=== PATIENT | female | born 1935 | race Caucasian/White ===

== ENCOUNTER 2016-10-12 14:20 | Emergency (ER) | payer MEDICARE, BC ==
[2016-10-12 15:09] LABS: ABSOLUTE BASOPHILS # (AUTO) 0.1 10^3/uL (0.0-0.2); ABSOLUTE EOSINOPHILS # (AUTO) 0.1 10^3/uL (0.0-0.6); ABSOLUTE LYMPHOCYTES (AUTO) 1.7 10^3/uL (0.5-4.7); ABSOLUTE MONOCYTES (AUTO) 0.8 10^3/uL (0.1-1.4); BASOPHILS % (AUTO) 0.9 % (0-2); EOSINOPHILS % (AUTO) 0.6 % (0-6); HEMOGLOBIN 14.3 g/dL (12.0-15.5); HGB HCT DIFFERENCE -0.1; LYMPHOCYTES % (AUTO) 19.8 % (13-45); MEAN CORPUSCULAR HEMOGLOBIN 27.8 pg (27.0-33.4); MEAN CORPUSCULAR HGB CONC 33.3 g/dL (32.0-36.0); MEAN CORPUSCULAR VOLUME 84 fl (80-97); MONOCYTES % (AUTO) 8.9 % (3-13); RED BLOOD COUNT 5.15 10^6/uL (3.72-5.28); RED CELL DISTRIBUTION WIDTH 17.2 % (11.5-14.0); SEGMENTED NEUTROPHILS % (AUTO) 69.8 % (42-78); WHITE BLOOD COUNT 8.6 10^3/uL (4.0-10.5)
[2016-10-12 15:10] LABS: PROTHROMBIN TIME 17.4 SEC (11.4-15.4)
[2016-10-12 15:39] LABS: CREATINE KINASE MB 1.57 ng/mL (<4.55); TROPONIN I 0.016 ng/mL
[2016-10-12 15:56] LABS: ALANINE AMINOTRANSFERASE 31 U/L (9-52); ALBUMIN 4.5 g/dL (3.5-5.0); ALKALINE PHOSPHATASE 142 U/L (38-126); ANION GAP 18 (5-19); ASPARTATE AMINO TRANSFERASE 37 U/L (14-36); BILIRUBIN,TOTAL 1.1 mg/dL (0.2-1.3); BLOOD UREA NITROGEN 23 mg/dL (7-20); CALCIUM 9.6 mg/dL (8.4-10.2); CARBON DIOXIDE 30 mmol/L (22-30); CHLORIDE 94 mmol/L (98-107); CREATINE KINASE 39 U/L (30-135); CREATININE RESULT 1.07 mg/dL (0.52-1.25); GLUCOSE 81 mg/dL (75-110); POTASSIUM 3.6 mmol/L (3.6-5.0); SODIUM 141.7 mmol/L (137-145); TOTAL PROTEIN 7.1 g/dL (6.3-8.2)
--- NOTE | 2016-10-12 19:41 | ER Document Report ---
ED Cardiac - General Chief Complaint: Chest Pain > 30 Stated Complaint: CHEST PAIN Notes: This is an 80-year-old female with history of A. fib, PE on Xarelto who presents complaining of 31 minute episodes of chest pain which occurred this morning. She states each episode was about 2 minutes apart. She describes it as discomfort rather than pain. She did not fill particular short of breath with it. She was concerned and told her son who advised her to come to the ER to get checked out. She did go see a movie before coming to the ER and states she felt fine the whole time. She also states she is feeling completely normal at this time. She states she occasionally has bilateral lower extremity edema, none at this time. She did note some about 2 weeks ago and had some weeping from her legs when that happened. No recent travel or immobilization. The patient reports a clean cardiac catheterization about 2-3 years ago. TRAVEL OUTSIDE OF THE [place] IN LAST 30 DAYS: No - Related Data Allergies/Adverse Reactions: Penicillins Allergy (Verified 10/12/16 14:29) Past Medical History - General Information source: Patient Last Menstrual Period: n/a - Social History Smoking Status: Former Smoker - Quit 7 years ago Frequency of alcohol use: drinks 1-2 drinks daily Drug Abuse: None Family History: Reviewed & Not Pertinent - Past Medical History Cardiac Medical History: Reports: Hx Atrial Fibrillation, Hx DVT, Hx Hypertension, Hx Peripheral Vascular Disease, Hx Pulmonary Embolism Pulmonary Medical History: Reports: Hx Asthma, Hx COPD GI Medical History: Reports: Hx Gastroesophageal Reflux Disease - Immunizations Immunizations up to date: Yes Hx Diphtheria, Pertussis, Tetanus Vaccination: Yes Hx Pneumococcal Vaccination: 06/10/15 Review of Systems - Review of Systems Constitutional: denies: Fever EENT: denies: Throat pain Cardiovascular: denies: Dyspnea, Syncope Respiratory: denies: Cough, Hurts to breathe, Hemoptysis, Short of breath Gastrointestinal: denies: Abdominal pain Genitourinary: denies: Flank pain Neurological/Psychological: denies: Numbness, Tingling Physical Exam - Vital signs Vitals: Temp Pulse BP 97.5 F 96 134/105 H 10/12/16 14:43 10/12/16 14:43 10/12/16 14:43 - Notes Notes: GENERAL: Very well-appearing, talkative, smiling female who appears much younger than her stated age HEAD: Atraumatic, normocephalic. EYES: Pupils equal round and reactive to light, extraocular movements intact, sclera anicteric, conjunctiva are normal. ENT: nares patent, oropharynx clear without exudates. Moist mucous membranes. NECK: Normal range of motion, supple without lymphadenopathy or JVD. LUNGS: Breath sounds clear to auscultation bilaterally and equal. No wheezes rales or rhonchi. HEART: Irregularly irregular normal rate ABDOMEN: Soft, nontender, normoactive bowel sounds. No guarding, no rebound. No masses appreciated. EXTREMITIES: Normal range of motion, no pitting or edema. No clubbing or cyanosis. NEUROLOGICAL: Cranial nerves II through XII grossly intact. Normal speech, normal gait. PSYCH: Normal mood, normal affect. SKIN: Warm, Dry, normal turgor, no rashes or lesions noted. Few scattered ecchymotic areas on the lower extremities Course - Re-evaluation Re-evalutation: 10/12/16 19:39 pt feeling fine, wants to go home. CTA negative. Cardiac enzymes negative x 2. Rate controlled a fib on monitor, O2 sat 95% on room air. Son at bedside. Pt has appt with Dr. Pino next week. - Vital Signs Vital signs: Temp Pulse Resp BP Pulse Ox 98.7 F 96 18 129/89 H 76 L 10/12/16 15:33 10/12/16 14:43 10/12/16 18:13 10/12/16 18:13 10/12/16 17:00 - Laboratory Result Diagrams: 10/12/16 14:50 10/12/16 14:50 Laboratory results interpreted by me: 10/12/16 10/12/16 10/12/16 14:50 14:50 14:50 RDW 17.2 H PT 17.4 H Chloride 94 L BUN 23 H Est GFR (Non-Af Amer) 49 L AST 37 H Alkaline Phosphatase 142 H - Diagnostic Test Radiology reviewed: Image reviewed, Reports reviewed - EKG Interpretation by Me Rate: Normal - 100, appearance similar to 10/11/15 Rhythm: A.Fib Discharge - Discharge Clinical Impression: Chest pain, atypical Condition: Good Disposition: HOME, SELF-CARE Additional Instructions: return to ER if you have further chest pain episodes or are feeling ill, short of breath, have fever or any new concerns. Referrals: JOSE PINO MD [Primary Care Provider] - Follow up as needed
[2016-10-12 21:32] VITALS: BP 111/71
--- NOTE | 2016-10-13 15:56 | EKG REPORT ---
SEVERITY:- ABNORMAL ECG - ATRIAL FIBRILLATION, V-RATE 71-130 PROBABLE ANTEROSEPTAL INFARCT, OLD REPOL ABNRM SUGGESTS ISCHEMIA, ANT-LAT LEADS : Confirmed by: Hesham Ceron 13-Oct-2016 15:55:42
== END 2016-10-12 21:28 | disposition home or self-care (01) ==
LOC: ER 14:20
DX: R07.89 Other chest pain (principal); I48.91 Unspecified atrial fibrillation; I10 Essential (primary) hypertension; J44.9 Chronic obstructive pulmonary disease, unspecified; J45.909 Unspecified asthma, uncomplicated; Z86.711 Personal history of pulmonary embolism; Z79.01 Long term (current) use of anticoagulants; Z87.891 Personal history of nicotine dependence; Z86.718 Personal history of other venous thrombosis and embolism
CPT/HCPCS: 36415; 71020; 71275; 80053; 82550; 82553; 84484; 85025; 85610; 93005; 93010; 99285

== ENCOUNTER 2016-11-10 09:39 | Inpatient (IN) | payer MEDICARE, BC ==
[2016-11-10] MEDS ORDERED: IPRATROPIUM/ALBUTEROL 0.5-2.5 MG/3 ML AMPUL NEB ONE (11:18)
[2016-11-10 11:58] LABS: HEMATOCRIT 36.9 % (36.0-47.0); HEMOGLOBIN 12.1 g/dL (12.0-15.5); HGB HCT DIFFERENCE -0.6; MEAN CORPUSCULAR HEMOGLOBIN 27.6 pg (27.0-33.4); MEAN CORPUSCULAR HGB CONC 32.9 g/dL (32.0-36.0); MEAN CORPUSCULAR VOLUME 84 fl (80-97); PROTHROMBIN TIME 16.2 SEC (11.4-15.4); RED CELL DISTRIBUTION WIDTH 17.5 % (11.5-14.0)
[2016-11-10 12:06] LABS: ALANINE AMINOTRANSFERASE 19 U/L (9-52); ALBUMIN 4.4 g/dL (3.5-5.0); ALKALINE PHOSPHATASE 153 U/L (38-126); ANION GAP 15 (5-19); ASPARTATE AMINO TRANSFERASE 31 U/L (14-36); BILIRUBIN,TOTAL 1.9 mg/dL (0.2-1.3); BLOOD UREA NITROGEN 19 mg/dL (7-20); CALCIUM 9.9 mg/dL (8.4-10.2); CARBON DIOXIDE 29 mmol/L (22-30); CHLORIDE 97 mmol/L (98-107); CREATINE KINASE 92 U/L (30-135); CREATININE RESULT 0.97 mg/dL (0.52-1.25); GLUCOSE 152 mg/dL (75-110); POTASSIUM 3.6 mmol/L (3.6-5.0); SODIUM 141.1 mmol/L (137-145); TOTAL PROTEIN 6.5 g/dL (6.3-8.2)
[2016-11-10 12:18] LABS: CREATINE KINASE MB 1.71 ng/mL (<4.55); TROPONIN I 0.028 ng/mL
[2016-11-10 12:27] LABS: BASOPHILS % (MANUAL) 0 % (0-2); EOSINOPHILS % (MANUAL) 0 % (0-6); LYMPHOCYTES % (MANUAL) 7 % (13-45); TOTAL CELLS COUNTED 100
[2016-11-10 12:30] LABS: ANISOCYTOSIS 1+; POLYCHROMASIA SLIGHT; TOXIC GRANULATION SLIGHT
[2016-11-10] MEDS ORDERED: NORMAL SALINE 1000 ML 500 ML IV ONE (12:30)
[2016-11-10 13:09] LABS: VENOUS BLOOD BASE EXCESS 3.4 mmol/L; VENOUS BLOOD HCO3 27.8 mmol/L (20-32); VENOUS BLOOD PCO2 41.3 mmHg (35-63); VENOUS BLOOD PH 7.45 (7.30-7.42)
[2016-11-10] MEDS ORDERED: DILTIAZEM HCL/D5W 125 ML IV PRN ×2 (14:03→15:05)
[2016-11-10] MEDS ORDERED: DILTIAZEM HCL INJ 25 MG/5 ML VIAL IV ONE (14:03)
[2016-11-10] MEDS ORDERED: FUROSEMIDE INJ/PF 40 MG/4 ML SDV IV ONE (14:03)
--- NOTE | 2016-11-10 14:33 | ER Document Report ---
ED General - General Chief Complaint: Pain All Over Stated Complaint: FLU LIKE SYMPTOMS BREATHING CONCERNS TRAVEL OUTSIDE OF THE [place] IN LAST 30 DAYS: No - Related Data Allergies/Adverse Reactions: Penicillins Allergy (Verified 11/10/16 09:50) Past Medical History - Social History Smoking Status: Former Smoker Chew tobacco use (# tins/day): No Frequency of alcohol use: Occasional Drug Abuse: None Family History: Reviewed & Not Pertinent Patient has suicidal ideation: No Patient has homicidal ideation: No - Past Medical History Cardiac Medical History: Reports: Hx Atrial Fibrillation, Hx DVT, Hx Hypertension, Hx Peripheral Vascular Disease, Hx Pulmonary Embolism Pulmonary Medical History: Reports: Hx Asthma, Hx COPD Renal/ Medical History: Denies: Hx Peritoneal Dialysis GI Medical History: Reports: Hx Gastroesophageal Reflux Disease - Immunizations Immunizations up to date: Yes Hx Diphtheria, Pertussis, Tetanus Vaccination: Yes Hx Pneumococcal Vaccination: 06/10/15 Physical Exam - Vital signs Vitals: Temp Pulse Resp BP Pulse Ox 99.0 F 92 32 H 156/102 H 95 11/10/16 09:58 11/10/16 09:58 11/10/16 09:58 11/10/16 09:58 11/10/16 09:58 Course - Vital Signs Vital signs: Temp Pulse Resp BP Pulse Ox 99.5 F 92 18 156/102 H 96 11/10/16 13:16 11/10/16 09:58 11/10/16 11:00 11/10/16 09:58 11/10/16 13:17 - Laboratory Result Diagrams: 11/10/16 11:40 11/10/16 11:40 Laboratory results interpreted by me: 11/10/16 11/10/16 11/10/16 11:40 11:40 11:40 RDW 17.5 H Seg Neuts % (Manual) 92 H Lymphocytes % (Manual) 7 L Monocytes % (Manual) 1 L Abs Neuts (Manual) 9.2 H PT 16.2 H VBG pH Chloride 97 L Est GFR (Non-Af Amer) 55 L Glucose 152 H Total Bilirubin 1.9 H Alkaline Phosphatase 153 H 11/10/16 12:43 RDW Seg Neuts % (Manual) Lymphocytes % (Manual) Monocytes % (Manual) Abs Neuts (Manual) PT VBG pH 7.45 H Chloride Est GFR (Non-Af Amer) Glucose Total Bilirubin Alkaline Phosphatase Discharge - Discharge Clinical Impression: Anticoagulated, Atrial fibrillation with RVR COPD (chronic obstructive pulmonary disease) Qualifiers: COPD type: unspecified COPD Qualified Code(s): J44.9 - Chronic obstructive pulmonary disease, unspecified Hypervolemia Qualifiers: Hypervolemia type: unspecified Qualified Code(s): E87.70 - Fluid overload, unspecified Condition: Fair Disposition: ADMITTED INPATIENT Admitting Provider: Hospitalist - [facility] Admitted: [facility]
--- NOTE | 2016-11-10 15:32 | ER Document Report ---
Addendum entered and electronically signed by KANG CABRAL NP 11/10/16 15:44: Discharge Summary (Adult) Resuscitation Status: Full Code - Discharge Diagnosis (1) Atrial fibrillation with RVR Is this a current diagnosis for this admission?: Yes (2) Acute on chronic diastolic (congestive) heart failure Is this a current diagnosis for this admission?: Yes (3) Acute exacerbation of chronic obstructive pulmonary disease (COPD) Is this a current diagnosis for this admission?: Yes (4) Anticoagulated Is this a current diagnosis for this admission?: Yes (5) Essential hypertension Is this a current diagnosis for this admission?: Yes Discharge Medication: Albuterol Sulfate [Ventolin Hfa] puff IN PRN 10/11/15 Azelastine/Fluticasone [Dymista Nasal [place]] 2 puff NASL QHS 10/11/15 Budesonide/Formoterol Fumarate [Symbicort HFA 80-4.5 mcg Inhaler 6.9 gm] puff IN 10/11/15 Calcium Carbonate/Vitamin D3 [Calcium 600-Vit D3 200 Tablet] 1 tab PO QHS Fluticasone Propionate [Flovent Diskus 50 mcg] puff IN 10/11/15 Mv-Mn/FA/Vit K/Lycop/Lut/Zeaxa [Ocuvite Eye + Multi Tablet] 1 tab PO 10/11/15 Apixaban [Eliquis 5 mg Tablet] 5 mg PO BID #60 tablet 10/15/15 Benzonatate [Tessalon Perles 100 mg Capsule] 100 mg PO Q6 #30 capsule 10/15/15 Digoxin [Lanoxin 0.125 mg Tablet] 0.125 mg PO DAILY #30 tablet 10/15/15 Doxycycline Hyclate [Vibramycin 100 mg Tablet] 100 mg PO Q12 #10 tablet Guaifenesin [Mucinex Sr 600 mg Tablet.sa] 1,200 mg PO Q12 #60 tablet.sa Metoprolol Tartrate [Lopressor 50 mg Tablet] 50 mg PO Q12 #60 tablet 10/15/15 Prednisone 20 mg PO ASDIR #21 tablet 10/15/15 Clindamycin HCl [Cleocin Hcl] 300 mg PO QID #28 capsule 08/03/16 Original Note: ED General - General Chief Complaint: Pain All Over Stated Complaint: FLU LIKE SYMPTOMS BREATHING CONCERNS TRAVEL OUTSIDE OF THE [place] IN LAST 30 DAYS: No - HPI Patient complains to provider of: shortness of breath myalgias Notes: Patient coming in for evaluation of a source of breath nausea vomiting after being seen in her local primary care physician's office. Patient states father became acutely short of breath with some nausea and vomiting. Patient states symptoms ongoing for approximately past 24-48 hours. Patient states recent adjustment to her blood pressure medications did not take her metoprolol night prior to arrival. Denies fever chills chest pain abdominal pain. Upon evaluation the patient is tachypneic no signs of impending her story stress - Related Data Allergies/Adverse Reactions: Penicillins Allergy (Verified 11/10/16 09:50) Past Medical History - Social History Smoking Status: Former Smoker Chew tobacco use (# tins/day): No Frequency of alcohol use: Occasional Drug Abuse: None Family History: Reviewed & Not Pertinent Patient has suicidal ideation: No Patient has homicidal ideation: No - Past Medical History Cardiac Medical History: Reports: Hx Atrial Fibrillation, Hx DVT, Hx Hypertension, Hx Peripheral Vascular Disease, Hx Pulmonary Embolism Pulmonary Medical History: Reports: Hx Asthma, Hx COPD Renal/ Medical History: Denies: Hx Peritoneal Dialysis GI Medical History: Reports: Hx Gastroesophageal Reflux Disease - Immunizations Immunizations up to date: Yes Hx Diphtheria, Pertussis, Tetanus Vaccination: Yes Hx Pneumococcal Vaccination: 06/10/15 Review of Systems - Review of Systems Constitutional: No symptoms reported EENT: No symptoms reported Cardiovascular: No symptoms reported Respiratory: Cough, Short of breath, Wheezing Gastrointestinal: No symptoms reported Genitourinary: No symptoms reported Female Genitourinary: No symptoms reported Musculoskeletal: No symptoms reported Skin: No symptoms reported Hematologic/Lymphatic: No symptoms reported Neurological/Psychological: No symptoms reported -: Yes All other systems reviewed and negative Physical Exam - Vital signs Vitals: Temp Pulse Resp BP Pulse Ox 99.0 F 92 32 H 156/102 H 95 11/10/16 09:58 11/10/16 09:58 11/10/16 09:58 11/10/16 09:58 11/10/16 09:58 Interpretation: Tachypneic - General General appearance: Appears well, Alert - HEENT Head: Normocephalic, Atraumatic Eyes: Normal Pupils: PERRL - Respiratory Respiratory status: No respiratory distress Chest status: Nontender Breath sounds: Rhonchi, Wheezing Chest palpation: Normal - Cardiovascular Rhythm: Irregularly irregular, Tachycardia Heart sounds: Normal auscultation Murmur: No - Abdominal Inspection: Normal Distension: No distension Bowel sounds: Normal Tenderness: Nontender Organomegaly: No organomegaly - Back Back: Normal, Nontender - Extremities General upper extremity: Normal inspection, Nontender, Normal color, Normal ROM , Normal temperature General lower extremity: Normal inspection, Nontender, Normal color, Normal ROM , Normal temperature, Normal weight bearing. No: Trey's sign - Neurological Neuro grossly intact: Yes Cognition: Normal Orientation: AAOx4 Gust[place] Coma Scale Eye Opening: Spontaneous [place] Coma Scale Verbal: Oriented [place] Coma Scale Motor: Obeys Commands [place] Coma Scale Total: 15 Speech: Normal Motor strength normal: LUE, RUE, LLE, RLE Sensory: Normal - Psychological Associated symptoms: Normal affect, Normal mood - Skin Skin Temperature: Warm Skin Moisture: Dry Skin Color: Normal Course - Re-evaluation Re-evalutation: 11/10/16 15:33 Patient with A. fib RVR chest x-ray showed fluid overload. Patient was started on Cardizem drip given Lasix. Patient had no improvement after nebulizer treatment of that she has a history of COPD and wheezing. Patient at this time shows no signs of sepsis will refer patient to hospitalist for further management. - Vital Signs Vital signs: Temp Pulse Resp BP Pulse Ox 99.5 F 92 18 156/102 H 96 11/10/16 13:16 11/10/16 09:58 11/10/16 11:00 11/10/16 09:58 11/10/16 13:17 - Laboratory Result Diagrams: 11/10/16 11:40 11/10/16 11:40 Laboratory results interpreted by me: 11/10/16 11/10/16 11/10/16 11:40 11:40 11:40 RDW 17.5 H Seg Neuts % (Manual) 92 H Lymphocytes % (Manual) 7 L Monocytes % (Manual) 1 L Abs Neuts (Manual) 9.2 H PT 16.2 H VBG pH Chloride 97 L Est GFR (Non-Af Amer) 55 L Glucose 152 H Total Bilirubin 1.9 H Alkaline Phosphatase 153 H 11/10/16 12:43 RDW Seg Neuts % (Manual) Lymphocytes % (Manual) Monocytes % (Manual) Abs Neuts (Manual) PT VBG pH 7.45 H Chloride Est GFR (Non-Af Amer) Glucose Total Bilirubin Alkaline Phosphatase Critical Care Note - Critical Care Note Total time excluding time spent on procedures (mins): 35 Comments: Multiple reevaluation patient with A. fib with RVR Discharge - Discharge Clinical Impression: Anticoagulated, Atrial fibrillation with RVR COPD (chronic obstructive pulmonary disease) Qualifiers: COPD type: unspecified COPD Qualified Code(s): J44.9 - Chronic obstructive pulmonary disease, unspecified Fluid overload Qualifiers: Hypervolemia type: unspecified Qualified Code(s): E87.70 - Fluid overload, unspecified Condition: Fair Disposition: ADMITTED INPATIENT Referrals: JOSE PINO MD [Primary Care Provider] - Follow up as needed
--- NOTE | 2016-11-10 15:45 | PDOC H&P ---
History of Present Illness Admission Date/PCP: JOSE PINO Patient complains of: Cough, shortness of breath, and body aches History of Present Illness: ELEANOR PEGUERO is a 80 year old female, with a history of COPD, not on home oxygen, chronic atrial fibrillation, DVT, pulmonary embolism, hypertension, and chronic diastolic heart failure. She presents to the [facility] emergency room this afternoon complaining of progressive shortness of breath, productive cough, and body aches. She was noted to be in a rapid atrial fibrillation. Chest x-ray was obtained which showed no infiltrates or effusions the fluid volume overload. She was started on IV Cardizem and given 1 dose of IV Lasix by the ER physician. She states her symptoms began yesterday morning and have worsened until her presentation. She denies any fevers, she has had chills, as well as a productive cough of thick white sputum and generalized body aches. She states she did receive a flu shot. She has had no ill contacts with other family members. She denies any chest pain, palpitations or dizziness. She is chronically anticoagulated on Eliquis therapy. Past Medical History Cardiac Medical History: Reports: Atrial Fibrillation, DVT, Hypertension, Peripheral Vascular Disease, Pulmonary Embolism Pulmonary Medical History: Reports: Asthma, Chronic Obstructive Pulmonary Disease (COPD) EENT Medical History: Reports: None Neurological Medical History: Reports: None Renal/ Medical History: Reports: None Malignancy Medical History: Reports: None GI Medical History: Reports: Gastroesophageal Reflux Disease Musculoskeltal Medical History: Reports: None Skin Medical History: Reports: None Psychiatric Medical History: Reports: None Traumatic Medical History: Reports: None Hematology: Reports: None Infectious Medical History: Reports: None Past Surgical History Past Surgical History: Reports: None Social History Information Source: Patient Lives with: Alone Smoking Status: Former Smoker Last Time Smoked: 15 years ago Frequency of Alcohol Use: Social Hx Recreational Drug Use: No Drugs: None Hx Prescription Drug Abuse: No - Advance Directive Resuscitation Status: Full Code Surrogate healthcare decision maker:: son is her MPOA should she become incapacitated Family History Family History: COPD, Hypertension Parental Family History Reviewed: Yes Children Family History Reviewed: Yes Sibling(s) Family History Reviewed.: Yes Medication/Allergy Home Medications: Albuterol Sulfate [Ventolin Hfa] puff IN PRN 10/11/15 Azelastine/Fluticasone [Dymista Nasal [place]] 2 puff NASL QHS 10/11/15 Budesonide/Formoterol Fumarate [Symbicort HFA 80-4.5 mcg Inhaler 6.9 gm] puff IN 10/11/15 Calcium Carbonate/Vitamin D3 [Calcium 600-Vit D3 200 Tablet] 1 tab PO QHS Fluticasone Propionate [Flovent Diskus 50 mcg] puff IN 10/11/15 Mv-Mn/FA/Vit K/Lycop/Lut/Zeaxa [Ocuvite Eye + Multi Tablet] 1 tab PO 10/11/15 Apixaban [Eliquis 5 mg Tablet] 5 mg PO BID #60 tablet 10/15/15 Benzonatate [Tessalon Perles 100 mg Capsule] 100 mg PO Q6 #30 capsule 10/15/15 Digoxin [Lanoxin 0.125 mg Tablet] 0.125 mg PO DAILY #30 tablet 10/15/15 Doxycycline Hyclate [Vibramycin 100 mg Tablet] 100 mg PO Q12 #10 tablet Guaifenesin [Mucinex Sr 600 mg Tablet.sa] 1,200 mg PO Q12 #60 tablet.sa Metoprolol Tartrate [Lopressor 50 mg Tablet] 50 mg PO Q12 #60 tablet 10/15/15 Prednisone 20 mg PO ASDIR #21 tablet 10/15/15 Clindamycin HCl [Cleocin Hcl] 300 mg PO QID #28 capsule 08/03/16 Allergies/Adverse Reactions: Penicillins Allergy (Verified 11/10/16 09:50) Review of Systems Constitutional: PRESENT: anorexia, chills, fatigue, weakness Eyes: ABSENT: visual disturbances Ears: ABSENT: hearing changes Nose, Mouth, and Throat: PRESENT: headache(s), sore throat Cardiovascular: PRESENT: dyspnea on exertion, palpitations Respiratory: PRESENT: cough, dyspnea, sputum Gastrointestinal: PRESENT: heartburn Genitourinary: ABSENT: dysuria, hematuria Musculoskeletal: ABSENT: joint swelling Neurological: ABSENT: abnormal gait, abnormal speech, confusion, dizziness, focal weakness, syncope Psychiatric: ABSENT: anxiety, depression, homidical ideation, suicidal ideation Hematologic/Lymphatic: ABSENT: easy bleeding, easy bruising Physical Exam Vital Signs: Temp Pulse Resp BP Pulse Ox 99.5 F 92 18 156/102 H 96 11/10/16 13:16 11/10/16 09:58 11/10/16 11:00 11/10/16 09:58 11/10/16 13:17 Intake & Output 11/09/16 11/10/16 11/11/16 06:59 06:59 06:59 Weight 49 kg General appearance: PRESENT: no acute distress, thin, well-developed Head exam: PRESENT: atraumatic, normocephalic Eye exam: PRESENT: conjunctiva pink, EOMI, PERRLA. ABSENT: scleral icterus Ear exam: PRESENT: normal external ear exam Mouth exam: PRESENT: moist, tongue midline Neck exam: ABSENT: carotid bruit, JVD, lymphadenopathy, thyromegaly Respiratory exam: PRESENT: crackles - expiratory wheezes bilaterally, bibasilar crackles, symmetrical, wheezes Cardiovascular exam: PRESENT: irregular rhythm, +S1, +S2, systolic murmur - mitral area Pulses: PRESENT: normal dorsalis pedis pul Vascular exam: PRESENT: normal capillary refill GI/Abdominal exam: PRESENT: normal bowel sounds, soft. ABSENT: distended, guarding, mass, organolmegaly, rebound, tenderness Rectal exam: PRESENT: deferred Extremities exam: PRESENT: full ROM. ABSENT: calf tenderness, clubbing, pedal edema Neurological exam: PRESENT: alert, awake, oriented to person, oriented to place , oriented to time, oriented to situation, CN II-XII grossly intact. ABSENT: motor sensory deficit Psychiatric exam: PRESENT: appropriate affect, normal mood. ABSENT: homicidal ideation, suicidal ideation Skin exam: PRESENT: dry, intact, warm. ABSENT: cyanosis, rash Results Laboratory Results: 11/10/16 11:40 11/10/16 11:40 11/10/16 11/10/16 11/10/16 11:40 11:40 12:43 WBC 10.0 RBC 4.40 Hgb 12.1 Hct 36.9 MCV 84 MCH 27.6 MCHC 32.9 RDW 17.5 H Plt Count 176 Seg Neutrophils % Not Reportable Lymphocytes % Not Reportable Monocytes % Not Reportable Eosinophils % Not Reportable Basophils % Not Reportable Absolute Neutrophils Not Reportable Absolute Lymphocytes Not Reportable Absolute Monocytes Not Reportable Absolute Eosinophils Not Reportable Absolute Basophils Not Reportable VBG pH 7.45 H VBG pCO2 41.3 VBG HCO3 27.8 VBG Base Excess 3.4 Sodium 141.1 Potassium 3.6 Chloride 97 L Carbon Dioxide 29 Anion Gap 15 BUN 19 Creatinine 0.97 Est GFR ( Amer) > 60 Est GFR (Non-Af Amer) 55 L Glucose 152 H Calcium 9.9 Total Bilirubin 1.9 H AST 31 ALT 19 Alkaline Phosphatase 153 H Total Protein 6.5 Albumin 4.4 11/10/16 11/10/16 11:40 11:40 Creatine Kinase 92 CK-MB (CK-2) 1.71 Troponin I 0.028 Impressions: Chest X-Ray 11/10/16 11:17 IMPRESSION: Fluid overload or congestive failure superimposed on obstructive lung disease Assessment & Plan - Diagnosis (1) Atrial fibrillation with RVR Is this a current diagnosis for this admission?: YesPlan: Patient will be placed on diltiazem drip for rate control. She is on Eliquis therapy and metoprolol. She has a history of atrial fibrillation. She did not take metoprolol since yesterday morning. (2) Acute on chronic diastolic (congestive) heart failure Is this a current diagnosis for this admission?: YesPlan: Chest xray shows fluid volume overload. Last echo 10/2015 shows preserved EF with diastolic heart failure grade I/IV and moderate tricuspid regurgitation and mild to moderate mitral regurgitation. Will diurese, continue metoprolol and digoxin. (3) Acute exacerbation of chronic obstructive pulmonary disease (COPD) Is this a current diagnosis for this admission?: YesPlan: Secondary to upper respiratory infection. Patient is afebrile at the present time. Will start IV steroids, nebulizer treatments, and IV levaquin (4) Anticoagulated Is this a current diagnosis for this admission?: YesPlan: Patient on Eliquis therapy (5) Essential hypertension Is this a current diagnosis for this admission?: YesPlan: Continue current medications - Time Time Spent: 50 to 70 Minutes Critical Time spent with patient: 25-34 minutes Medications reviewed and adjusted accordingly: Yes Anticipated discharge: Home - Inpatient Certification Based on my medical assessment, after consideration of the patient's comorbidities, presenting symptoms, or acuity I expect that the services needed warrant INPATIENT care.: Yes I certify that my determination is in accordance with my understanding of Medicare's requirements for reasonable and necessary INPATIENT services [42 CFR 412.3e].: Yes Medical Necessity: Need Close Monitoring Due to Risk of Patient Decompensation, Need For Continuous Telemetry Monitoring, Risk of Complication if Not Cared For in Hospital
[2016-11-10] MEDS ORDERED: METOPROLOL TARTRATE 50 MG TABLET ONE (16:51)
[2016-11-10] MEDS ORDERED: METOPROLOL SUCCINATE 50 MG TAB.SR.24H PO ONE (16:52)
[2016-11-10] MEDS ORDERED: GABAPENTIN 300 MG CAPSULE PO PRN (16:52)
[2016-11-10] MEDS: BENZONATATE 100 MG CAPSULE PO SCH ×2 (18:00→23:07)
[2016-11-10] MEDS ORDERED: APIXABAN 5 MG TABLET PO SCH ×2 (18:00→22:00)
[2016-11-10] MEDS: BUDESONIDE/FORMOTEROL 80-4.5 MCG 60 PUFF/6.9 GM MDI IH SCH (18:03)
[2016-11-10] MEDS: IPRATROPIUM/ALBUTEROL 0.5-2.5 MG/3 ML AMPUL NEB PRN ×2 (18:21→20:36)
[2016-11-10] MEDS: HYDROXYZINE PAMOATE 25 MG CAPSULE PO SCH (21:31)
[2016-11-10] MEDS: FAMOTIDINE 20 MG TABLET PO SCH (21:31)
[2016-11-10] MEDS: GUAIFENESIN 600 MG TABLET.SA PO SCH (21:32)
[2016-11-10] MEDS: METHYLPREDNISOLONE INJ 125 MG/2 ML SDV IV SCH (21:32)
[2016-11-10] MEDS ORDERED: METOPROLOL TARTRATE 50 MG TABLET PO SCH (22:00)
[2016-11-10] MEDS ORDERED: (PENDING PHARMACY ID) (Hydroxyzine Hcl [Atarax 25 Mg Tablet] 25 MG) PO SCH (22:00)
[2016-11-10] MEDS ORDERED: BUDESONIDE/FORMOTEROL 160-4.5 MCG 60 PUFF/6 GM MDI IH SCH (22:00)
[2016-11-10] MEDS: METOPROLOL TARTRATE PF/INJ 5 MG/5 ML SDV IV PRN (22:09)
[2016-11-11] MEDS: BENZONATATE 100 MG CAPSULE PO SCH ×4 (05:12→23:01)
[2016-11-11] MEDS: METHYLPREDNISOLONE INJ 125 MG/2 ML SDV IV SCH ×3 (05:13→21:18)
[2016-11-11 05:31] LABS: HEMATOCRIT 35.2 % (36.0-47.0); HEMOGLOBIN 11.8 g/dL (12.0-15.5); HGB HCT DIFFERENCE 0.2; MEAN CORPUSCULAR HEMOGLOBIN 28.1 pg (27.0-33.4); MEAN CORPUSCULAR HGB CONC 33.6 g/dL (32.0-36.0); MEAN CORPUSCULAR VOLUME 84 fl (80-97); RED BLOOD COUNT 4.21 10^6/uL (3.72-5.28); RED CELL DISTRIBUTION WIDTH 17.5 % (11.5-14.0); WHITE BLOOD COUNT 9.2 10^3/uL (4.0-10.5)
[2016-11-11 05:45] LABS: CHOLESTEROL 125.42 mg/dL (0-200); CREATINE KINASE 151 U/L (30-135); DIGOXIN 0.51 ng/mL (0.8-2.0); Direct HDL 46 mg/dL (>40); MAGNESIUM 1.3 mg/dL (1.6-2.3); TRIGLYCERIDES 50 mg/dL (<150)
[2016-11-11 05:53] LABS: DIRECT LDL 66 mg/dL (<100)
[2016-11-11 05:59] LABS: FREE T3 3.19 pg/mL (2.77-5.27)
[2016-11-11 06:13] LABS: THYROID STIMULATING HORMONE 1.06 uIU/mL (0.47-4.68)
[2016-11-11 06:19] LABS: BAND NEUTROPHILS % (MANUAL) 2 % (3-5); BASOPHILS % (MANUAL) 0 % (0-2); EOSINOPHILS % (MANUAL) 0 % (0-6); LYMPHOCYTES % (MANUAL) 6 % (13-45); TOTAL CELLS COUNTED 100
[2016-11-11 06:20] LABS: ANISOCYTOSIS 1+; OVALOCYTES SLIGHT; POIKILOCYTOSIS SLIGHT; TOXIC GRANULATION SLIGHT
[2016-11-11] MEDS: METOPROLOL TARTRATE 100 MG TABLET PO SCH (08:19)
[2016-11-11] MEDS: MAGNESIUM SULFATE/D5W 100 ML IV SCH ×2 (09:47→12:07)
[2016-11-11] MEDS: FAMOTIDINE 20 MG TABLET PO SCH ×2 (09:53→21:18)
[2016-11-11] MEDS: GUAIFENESIN 600 MG TABLET.SA PO SCH ×2 (09:53→21:18)
[2016-11-11] MEDS: DOCUSATE SODIUM 100 MG CAPSULE PO SCH (09:54)
[2016-11-11] MEDS: BUDESONIDE/FORMOTEROL 80-4.5 MCG 60 PUFF/6.9 GM MDI IH SCH ×2 (09:55→17:20)
[2016-11-11] MEDS: LEVOFLOXACIN 500 MG/D5W RTU 100 ML IV SCH (09:55)
[2016-11-11] MEDS: FLUTICASONE NASAL SPRAY 50 MCG/SPRY 120 SPRAY/16 GM NASL SCH (09:56)
[2016-11-11] MEDS: IPRATROPIUM/ALBUTEROL 0.5-2.5 MG/3 ML AMPUL NEB PRN ×2 (10:57→23:21)
--- NOTE | 2016-11-11 11:28 | EKG REPORT ---
SEVERITY:- ABNORMAL ECG - ATRIAL FIBRILLATION, V-RATE 86-167 PROBABLE ANTEROSEPTAL INFARCT, OLD REPOLARIZATION ABNORMALITY, PROB RATE RELATED : Confirmed by: Hesham Ceron 11-Nov-2016 11:26:41
[2016-11-11] MEDS ORDERED: DILTIAZEM HCL 60 MG TABLET PO SCH (12:00)
--- NOTE | 2016-11-11 14:00 | PDOC PROGRESS REPORT ---
Subjective Progress Note for:: 11/11/16 Subjective:: Patient seen on morning rounds. She is resting in bed. Her son is at bedside. She continues to have a cough which is mostly nonproductive and dyspnea with exertion. She denies any chest pain or dyspnea at rest. She denies any nausea, vomiting, or abdominal pain. She denies any back pain. She states her body aches have improved. Her atrial fibrillation is improved with betablockers. Physical Exam Vital Signs: Temp Pulse Resp BP Pulse Ox 97.5 F 80 16 93/75 L 96 11/11/16 11:16 11/11/16 11:16 11/11/16 11:16 11/11/16 12:03 11/11/16 11:16 Intake & Output 11/10/16 11/11/16 11/12/16 06:59 06:59 06:59 Intake Total 739 118 Output Total 750 200 - Weight 50.3 kg General appearance: PRESENT: no acute distress, thin, well-developed, well- nourished Head exam: PRESENT: atraumatic, normocephalic Eye exam: PRESENT: conjunctival injection Ear exam: PRESENT: normal external ear exam Mouth exam: PRESENT: moist, tongue midline Neck exam: ABSENT: carotid bruit, JVD, lymphadenopathy, thyromegaly Respiratory exam: PRESENT: decreased breath sounds, rhonchi, symmetrical, unlabored Cardiovascular exam: PRESENT: irregular rhythm, +S1, +S2 Pulses: PRESENT: normal dorsalis pedis pul Vascular exam: PRESENT: normal capillary refill GI/Abdominal exam: PRESENT: normal bowel sounds, soft. ABSENT: distended, guarding, mass, organolmegaly, rebound, tenderness Rectal exam: PRESENT: deferred Extremities exam: PRESENT: full ROM. ABSENT: calf tenderness, clubbing, pedal edema Neurological exam: PRESENT: alert, awake, oriented to person, oriented to place , oriented to time, oriented to situation, CN II-XII grossly intact. ABSENT: motor sensory deficit Psychiatric exam: PRESENT: appropriate affect, normal mood. ABSENT: homicidal ideation, suicidal ideation Skin exam: PRESENT: dry, intact, warm. ABSENT: cyanosis, rash Results Laboratory Results: 11/11/16 05:09 11/11/16 11/11/16 11/11/16 05:09 05:09 05:09 WBC 9.2 RBC 4.21 Hgb 11.8 L Hct 35.2 L MCV 84 MCH 28.1 MCHC 33.6 RDW 17.5 H Plt Count 164 Seg Neutrophils % Not Reportable Lymphocytes % Not Reportable Monocytes % Not Reportable Eosinophils % Not Reportable Basophils % Not Reportable Absolute Neutrophils Not Reportable Absolute Lymphocytes Not Reportable Absolute Monocytes Not Reportable Absolute Eosinophils Not Reportable Absolute Basophils Not Reportable Magnesium 1.3 L Triglycerides 50 Cholesterol 125.42 LDL Cholesterol Direct 66 VLDL Cholesterol 10.0 HDL Cholesterol 46 TSH 1.06 Free T4 1.77 Free T3 pg/mL 3.19 11/10/16 11/10/16 11/10/16 16:38 16:38 22:49 Creatine Kinase 133 149 H Troponin I 0.055 11/11/16 11/11/16 05:09 08:03 Creatine Kinase 151 H Troponin I 0.035 Impressions: Chest X-Ray 11/10/16 11:17 IMPRESSION: Fluid overload or congestive failure superimposed on obstructive lung disease Assessment & Plan - Diagnosis (1) Atrial fibrillation with RVR Is this a current diagnosis for this admission?: YesPlan: Patient is on a cardiazem drip for rate control. She is on Eliquis therapy and metoprolol. She has a history of atrial fibrillation. Her heart rate is much improved since starting her higher dose metoprolol. She did not take metoprolol for 11/2 days prior to her admission. (2) Acute on chronic diastolic (congestive) heart failure Is this a current diagnosis for this admission?: YesPlan: Chest xray shows fluid volume overload. Last echo 10/2015 shows preserved EF with diastolic heart failure grade I/IV and moderate tricuspid regurgitation and mild to moderate mitral regurgitation. Will diurese, continue metoprolol and digoxin. (3) Acute exacerbation of chronic obstructive pulmonary disease (COPD) Is this a current diagnosis for this admission?: YesPlan: Secondary to upper respiratory infection. Patient is afebrile at the present time. Will start IV steroids, nebulizer treatments, and IV levaquin (4) Anticoagulated Is this a current diagnosis for this admission?: YesPlan: Patient on Eliquis therapy (5) Essential hypertension Is this a current diagnosis for this admission?: YesPlan: Continue current medications - Time Time Spent with patient: 25-34 minutes Critical Time spent with patient: 15-24 minutes Medications reviewed and adjusted accordingly: Yes - Inpatient Certification Based on my medical assessment, after consideration of the patient's comorbidities, presenting symptoms, or acuity I expect that the services needed warrant INPATIENT care.: Yes I certify that my determination is in accordance with my understanding of Medicare's requirements for reasonable and necessary INPATIENT services [42 CFR 412.3e].: Yes Medical Necessity: Need Close Monitoring Due to Risk of Patient Decompensation, Need For Continuous Telemetry Monitoring, Risk of Complication if Not Cared For in Hospital
[2016-11-11] MEDS ORDERED: METOPROLOL TARTRATE 50 MG TABLET PO SCH (18:00)
[2016-11-11] MEDS: HYDROXYZINE PAMOATE 25 MG CAPSULE PO SCH (21:18)
[2016-11-11] MEDS: APIXABAN 5 MG TABLET PO SCH (21:18)
[2016-11-11] MEDS: MONTELUKAST SODIUM 10 MG TABLET PO SCH (21:21)
[2016-11-11] MEDS: METOPROLOL TARTRATE PF/INJ 5 MG/5 ML SDV IV PRN (22:34)
[2016-11-11] MEDS ORDERED: METOPROLOL TARTRATE PF/INJ 5 MG/5 ML SDV IV ONE (23:46)
[2016-11-12] MEDS ORDERED: DILTIAZEM HCL 30 MG TABLET ONE ×2 (01:04→03:50)
[2016-11-12] MEDS ORDERED: DILTIAZEM HCL 30 MG TABLET PO ONE ×3 (01:15→05:36)
[2016-11-12] MEDS: DILTIAZEM HCL 30 MG TABLET PO SCH ×4 (05:24→23:56)
[2016-11-12] MEDS: METHYLPREDNISOLONE INJ 125 MG/2 ML SDV IV SCH (05:25)
[2016-11-12] MEDS: BENZONATATE 100 MG CAPSULE PO SCH ×4 (05:25→23:57)
[2016-11-12] MEDS ORDERED: NORMAL SALINE 1000 ML 1,000 ML IV PRN (05:36)
[2016-11-12 05:59] LABS: HEMATOCRIT 39.5 % (36.0-47.0); HEMOGLOBIN 12.9 g/dL (12.0-15.5); HGB HCT DIFFERENCE -0.8; MEAN CORPUSCULAR HEMOGLOBIN 27.4 pg (27.0-33.4); MEAN CORPUSCULAR HGB CONC 32.6 g/dL (32.0-36.0); MEAN CORPUSCULAR VOLUME 84 fl (80-97); RED CELL DISTRIBUTION WIDTH 17.2 % (11.5-14.0)
[2016-11-12 06:17] LABS: ANION GAP 18 (5-19); BLOOD UREA NITROGEN 34 mg/dL (7-20); CALCIUM 10.1 mg/dL (8.4-10.2); CARBON DIOXIDE 26 mmol/L (22-30); CHLORIDE 87 mmol/L (98-107); GLUCOSE 161 mg/dL (75-110); POTASSIUM 3.8 mmol/L (3.6-5.0); SODIUM 131.2 mmol/L (137-145)
[2016-11-12 06:30] LABS: BAND NEUTROPHILS % (MANUAL) 1 % (3-5); BASOPHILS % (MANUAL) 0 % (0-2); EOSINOPHILS % (MANUAL) 0 % (0-6); LYMPHOCYTES % (MANUAL) 1 % (13-45); TOTAL CELLS COUNTED 100
[2016-11-12 06:31] LABS: ANISOCYTOSIS 1+; OVALOCYTES SLIGHT; POLYCHROMASIA SLIGHT
[2016-11-12] MEDS: MAGNESIUM SULFATE/D5W 1 GM/100 ML RTUPB IV SCH ×4 (06:42→10:56)
[2016-11-12] MEDS: METOPROLOL TARTRATE 100 MG TABLET PO SCH (07:52)
[2016-11-12] MEDS ORDERED: FUROSEMIDE INJ/PF 20 MG/2 ML SDV IV ONE (08:36)
[2016-11-12] MEDS ORDERED: FUROSEMIDE INJ/PF 40 MG/4 ML SDV IV ONE (09:00)
[2016-11-12] MEDS: LEVOFLOXACIN 500 MG/D5W RTU 100 ML IV SCH (09:51)
[2016-11-12] MEDS ORDERED: METHYLPREDNISOLONE INJ 125 MG/2 ML SDV IV SCH (10:00)
[2016-11-12] MEDS: FAMOTIDINE 20 MG TABLET PO SCH ×2 (10:02→22:24)
[2016-11-12] MEDS: APIXABAN 5 MG TABLET PO SCH ×2 (10:04→22:24)
[2016-11-12] MEDS: DOCUSATE SODIUM 100 MG CAPSULE PO SCH (10:04)
[2016-11-12] MEDS: GUAIFENESIN 600 MG TABLET.SA PO SCH ×2 (10:04→22:24)
[2016-11-12] MEDS: BUDESONIDE/FORMOTEROL 80-4.5 MCG 60 PUFF/6.9 GM MDI IH SCH ×2 (10:05→17:11)
[2016-11-12] MEDS: FLUTICASONE NASAL SPRAY 50 MCG/SPRY 120 SPRAY/16 GM NASL SCH ×2 (10:05→10:28)
[2016-11-12] MEDS: LEVALBUTEROL HCL NEB 1.25 MG/3 ML AMPUL NEB SCH ×2 (13:59→19:53)
[2016-11-12] MEDS: METOPROLOL TARTRATE 50 MG TABLET PO SCH (17:10)
[2016-11-12] MEDS: HYDROXYZINE PAMOATE 25 MG CAPSULE PO SCH (22:24)
[2016-11-12] MEDS: MONTELUKAST SODIUM 10 MG TABLET PO SCH (22:25)
[2016-11-12] MEDS ORDERED: METHYLPREDNISOLONE INJ 125 MG/2 ML SDV IV ONE (22:30)
[2016-11-12 22:58] LABS: HEMOGLOBIN 13.9 g/dL (12.0-15.5); HGB HCT DIFFERENCE -1.3; MEAN CORPUSCULAR HEMOGLOBIN 27.2 pg (27.0-33.4); MEAN CORPUSCULAR HGB CONC 32.3 g/dL (32.0-36.0); MEAN CORPUSCULAR VOLUME 84 fl (80-97); WHITE BLOOD COUNT 17.4 10^3/uL (4.0-10.5)
[2016-11-12 23:15] LABS: BLOOD UREA NITROGEN 41 mg/dL (7-20); CALCIUM 10.1 mg/dL (8.4-10.2); CHLORIDE 85 mmol/L (98-107); CREATININE RESULT 1.32 mg/dL (0.52-1.25); GLUCOSE 130 mg/dL (75-110)
[2016-11-12 23:16] LABS: BAND NEUTROPHILS % (MANUAL) 1 % (3-5); BASOPHILS % (MANUAL) 0 % (0-2); EOSINOPHILS % (MANUAL) 0 % (0-6); LYMPHOCYTES % (MANUAL) 3 % (13-45); TOTAL CELLS COUNTED 100
[2016-11-12 23:21] LABS: ANISOCYTOSIS 1+; PLATELET CLUMPS PRESENT; TEAR DROP CELLS 1+; TOXIC VACUOLATION PRESENT
[2016-11-12 23:26] LABS: CARBON DIOXIDE 21 mmol/L (22-30); SODIUM 128.9 mmol/L (137-145)
[2016-11-12 23:28] LABS: ANION GAP 23 (5-19); POTASSIUM 3.4 mmol/L (3.6-5.0)
[2016-11-12 23:31] LABS: ARTERIAL BLOOD BASE EXCESS -2.3 mmol/L; ARTERIAL BLOOD O2 SATURATION 95.2 % (94-98)
[2016-11-12] MEDS: IPRATROPIUM/ALBUTEROL 0.5-2.5 MG/3 ML AMPUL NEB PRN (23:35)
[2016-11-13 00:03] LABS: APPEARANCE,URINE SLIGHTLY-CLOUDY; BILIRUBIN,URINE NEGATIVE (NEGATIVE); GLUCOSE, URINE NEGATIVE (NEGATIVE); KETONES,URINE NEGATIVE (NEGATIVE); LEUKOCYTE ESTERASE,URINE NEGATIVE (NEGATIVE); NITRITE,URINE NEGATIVE (NEGATIVE); PROTEIN,URINE 30 mg/dL (NEGATIVE); URINE SPECIFIC GRAVITY 1.013; UROBILINOGEN,URINE NEGATIVE mg/dL (<2.0)
[2016-11-13] MEDS ORDERED: NORMAL SALINE 1000 ML 1,000 ML IV ONE (00:10)
[2016-11-13] MEDS ORDERED: VANCOMYCIN HCL 1,000 MG in DEXTROSE 5%-WATER 250 ML IV ONE (00:10)
[2016-11-13] MEDS ORDERED: POTASSIUM CHLORIDE 20 MEQ/15 ML UDCUP PO ONE (00:11)
[2016-11-13] MEDS ORDERED: VANCOMYCIN HCL 1 MG in DEXTROSE 5%-WATER 250 ML IV NR (00:15)
[2016-11-13] MEDS ORDERED: NORMAL SALINE 1000 ML 1,000 ML IV SCH (00:15)
[2016-11-13] MEDS: MAGNESIUM SULFATE/D5W 1 GM/100 ML RTUPB IV SCH ×2 (00:43→03:58)
[2016-11-13] MEDS ORDERED: VANCOMYCIN HCL INJ 1000 MG VIAL ONE (01:08)
[2016-11-13] MEDS: ONDANSETRON HCL INJ/PF 4 MG/2 ML SDV IV PRN ×2 (01:28→10:41)
[2016-11-13 05:59] LABS: HEMATOCRIT 37.7 % (36.0-47.0); HGB HCT DIFFERENCE -1.7; MEAN CORPUSCULAR HEMOGLOBIN 27.1 pg (27.0-33.4); MEAN CORPUSCULAR HGB CONC 31.8 g/dL (32.0-36.0); MEAN CORPUSCULAR VOLUME 85 fl (80-97); RED BLOOD COUNT 4.42 10^6/uL (3.72-5.28); RED CELL DISTRIBUTION WIDTH 17.1 % (11.5-14.0); WHITE BLOOD COUNT 14.4 10^3/uL (4.0-10.5)
[2016-11-13 06:24] LABS: ANION GAP 13 (5-19); BLOOD UREA NITROGEN 42 mg/dL (7-20); CALCIUM 8.8 mg/dL (8.4-10.2); CARBON DIOXIDE 26 mmol/L (22-30); CHLORIDE 89 mmol/L (98-107); CREATININE RESULT 1.24 mg/dL (0.52-1.25); GLUCOSE 184 mg/dL (75-110); MAGNESIUM 3.2 mg/dL (1.6-2.3); POTASSIUM 3.9 mmol/L (3.6-5.0); SODIUM 128.2 mmol/L (137-145)
[2016-11-13 06:31] LABS: BASOPHILS % (MANUAL) 0 % (0-2); EOSINOPHILS % (MANUAL) 0 % (0-6); LYMPHOCYTES % (MANUAL) 2 % (13-45); TOTAL CELLS COUNTED 100
[2016-11-13 06:32] LABS: POLYCHROMASIA SLIGHT; TOXIC VACUOLATION PRESENT
[2016-11-13 06:33] LABS: ANISOCYTOSIS 1+; TEAR DROP CELLS 1+
[2016-11-13] MEDS: DILTIAZEM HCL 30 MG TABLET PO SCH ×4 (06:53→23:14)
[2016-11-13] MEDS: BENZONATATE 100 MG CAPSULE PO SCH ×4 (06:54→23:13)
[2016-11-13] MEDS: LEVALBUTEROL HCL NEB 1.25 MG/3 ML AMPUL NEB SCH ×3 (08:59→20:11)
--- NOTE | 2016-11-13 09:25 | EKG REPORT ---
SEVERITY:- ABNORMAL ECG - ATRIAL FIBRILLATION ANTERIOR INFARCT, AGE INDETERMINATE NONSPECIFIC T ABNORMALITIES, INFERIOR LEADS : Confirmed by: Hesham Ceron 13-Nov-2016 09:24:59
[2016-11-13] MEDS ORDERED: LEVOFLOXACIN 500 MG TABLET PO SCH (10:00)
[2016-11-13] MEDS ORDERED: PREDNISONE 20 MG TABLET PO SCH (10:00)
[2016-11-13] MEDS: DOCUSATE SODIUM 100 MG CAPSULE PO SCH (10:40)
[2016-11-13] MEDS: APIXABAN 5 MG TABLET PO SCH ×2 (10:40→22:51)
[2016-11-13] MEDS: METOPROLOL TARTRATE 100 MG TABLET PO SCH (10:40)
[2016-11-13] MEDS: GUAIFENESIN 600 MG TABLET.SA PO SCH ×2 (10:40→22:51)
[2016-11-13] MEDS: FAMOTIDINE 20 MG TABLET PO SCH ×2 (10:40→22:51)
[2016-11-13] MEDS: LEVOFLOXACIN 500 MG/D5W RTU 100 ML IV SCH (10:41)
[2016-11-13] MEDS: BUDESONIDE/FORMOTEROL 80-4.5 MCG 60 PUFF/6.9 GM MDI IH SCH ×2 (10:43→17:41)
--- NOTE | 2016-11-13 12:27 | PDOC PROGRESS REPORT ---
Subjective Progress Note for:: 11/12/16 Subjective:: Patient seen on morning rounds. She is resting in bed. Her son is at bedside. She continues to have a cough which is mostly nonproductive and dyspnea with exertion. She denies any chest pain or dyspnea at rest. She denies any nausea, vomiting, or abdominal pain. She denies any back pain. She states her body aches have improved. Her atrial fibrillation is improved with betablockers. Physical Exam Vital Signs: Temp Pulse Resp BP Pulse Ox 97.3 F 92 26 H 146/99 H 95 11/13/16 08:00 11/13/16 08:56 11/13/16 12:07 11/13/16 08:00 11/13/16 12:20 Pulse Oximeter Continuous Start: 11/13/16 12: 12 Freq: RTQ4 Status: Active Document 11/13/16 12:20 LBR (Rec: 11/13/16 12:20 [email or web address] [email or web address]) Pulse Oximetry Assessment Oxygen Saturation (92-100) 95 Oxygen Delivery Method CPAP Fraction of Inspired Oxygen (FIO2) 40 Equipment Usage Initial Set Up Continuous Pulse Oximeter 24 Hour Charge Charge Now Continuous SpO2 Machine # 11 Intake & Output 11/12/16 11/13/16 11/14/16 06:59 06:59 06:59 Intake Total 659 2054 Output Total 200 50 Balance 459 2003 Weight 52.1 kg 54.3 kg General appearance: PRESENT: no acute distress, thin, well-developed, well- nourished Head exam: PRESENT: atraumatic, normocephalic Eye exam: PRESENT: conjunctiva pink, EOMI, PERRLA. ABSENT: scleral icterus Ear exam: PRESENT: normal external ear exam Mouth exam: PRESENT: moist, tongue midline Neck exam: ABSENT: carotid bruit, JVD, lymphadenopathy, thyromegaly Respiratory exam: PRESENT: rhonchi, symmetrical, unlabored Cardiovascular exam: PRESENT: RRR. ABSENT: diastolic murmur, rubs, systolic murmur Pulses: PRESENT: normal dorsalis pedis pul Vascular exam: PRESENT: normal capillary refill GI/Abdominal exam: PRESENT: normal bowel sounds, soft. ABSENT: distended, guarding, mass, organolmegaly, rebound, tenderness Rectal exam: PRESENT: deferred Extremities exam: PRESENT: full ROM. ABSENT: calf tenderness, clubbing, pedal edema Neurological exam: PRESENT: alert, awake, oriented to person, oriented to place , oriented to time, oriented to situation, CN II-XII grossly intact. ABSENT: motor sensory deficit Psychiatric exam: PRESENT: appropriate affect, normal mood. ABSENT: homicidal ideation, suicidal ideation Skin exam: PRESENT: dry, intact, warm. ABSENT: cyanosis, rash Results Laboratory Results: 11/13/16 05:00 11/13/16 05:00 11/12/16 11/12/16 11/12/16 22:45 22:45 22:55 WBC 17.4 H RBC 5.10 Hgb 13.9 Hct 43.0 MCV 84 MCH 27.2 MCHC 32.3 RDW 17.0 H Plt Count 225 Seg Neutrophils % Not Reportable Lymphocytes % Not Reportable Monocytes % Not Reportable Eosinophils % Not Reportable Basophils % Not Reportable Absolute Neutrophils Not Reportable Absolute Lymphocytes Not Reportable Absolute Monocytes Not Reportable Absolute Eosinophils Not Reportable Absolute Basophils Not Reportable Carbonic Acid 1.31 HCO3/H2CO3 Ratio 17:1 ABG pH 7.35 ABG pCO2 43.4 ABG pO2 79.5 L ABG HCO3 23.4 ABG O2 Saturation 95.2 ABG Base Excess -2.3 FiO2 FLOW RATE 5 Sodium 128.9 L Potassium 3.4 L Chloride 85 L Carbon Dioxide 21 L Anion Gap 23 H BUN 41 H Creatinine 1.32 H Est GFR ( Amer) 47 L Est GFR (Non-Af Amer) 39 L Glucose 130 H Calcium 10.1 Magnesium Urine Color Urine Appearance Urine pH Ur Specific [place] Urine Protein Urine Glucose (UA) Urine Ketones Urine Blood Urine Nitrite Ur Leukocyte Esterase Urine WBC (Auto) Urine RBC (Auto) 11/12/16 11/13/16 11/13/16 23:15 05:00 05:00 WBC 14.4 H RBC 4.42 Hgb 12.0 Hct 37.7 MCV 85 MCH 27.1 MCHC 31.8 L RDW 17.1 H Plt Count 204 Seg Neutrophils % Not Reportable Lymphocytes % Not Reportable Monocytes % Not Reportable Eosinophils % Not Reportable Basophils % Not Reportable Absolute Neutrophils Not Reportable Absolute Lymphocytes Not Reportable Absolute Monocytes Not Reportable Absolute Eosinophils Not Reportable Absolute Basophils Not Reportable Carbonic Acid HCO3/H2CO3 Ratio ABG pH ABG pCO2 ABG pO2 ABG HCO3 ABG O2 Saturation ABG Base Excess FiO2 Sodium 128.2 L Potassium 3.9 Chloride 89 L Carbon Dioxide 26 Anion Gap 13 BUN 42 H Creatinine 1.24 Est GFR ( Amer) 50 L Est GFR (Non-Af Amer) 42 L Glucose 184 H Calcium 8.8 Magnesium 3.2 H Urine Color YELLOW Urine Appearance SLIGHTLY-CLOUDY Urine pH 5.0 Ur Specific [place] 1.013 Urine Protein 30 H Urine Glucose (UA) NEGATIVE Urine Ketones NEGATIVE Urine Blood SMALL H Urine Nitrite NEGATIVE Ur Leukocyte Esterase NEGATIVE Urine WBC (Auto) 2 Urine RBC (Auto) 1 11/12/16 08:10 Sputum Gram Stain - Final 11/12/16 08:10 Sputum Sputum Culture - Final 11/10/16 11/10/16 11/10/16 16:38 16:38 22:49 Creatine Kinase 133 149 H Troponin I 0.055 NT-Pro-B Natriuret Pep 11/11/16 11/11/16 11/12/16 05:09 08:03 05:21 Creatine Kinase 151 H Troponin I 0.035 NT-Pro-B Natriuret Pep 5140 H Impressions: Chest X-Ray 11/10/16 11:17 IMPRESSION: Fluid overload or congestive failure superimposed on obstructive lung disease Assessment & Plan - Diagnosis (1) Atrial fibrillation with RVR Is this a current diagnosis for this admission?: YesPlan: Patient is on a cardiazem drip for rate control. She is on Eliquis therapy and metoprolol. She has a history of atrial fibrillation. Her heart rate is much improved since starting her higher dose metoprolol. She did not take metoprolol for 11/2 days prior to her admission. (2) Acute on chronic diastolic (congestive) heart failure Is this a current diagnosis for this admission?: YesPlan: Chest xray shows fluid volume overload. Last echo 10/2015 shows preserved EF with diastolic heart failure grade I/IV and moderate tricuspid regurgitation and mild to moderate mitral regurgitation. Will diurese, continue metoprolol and digoxin. (3) Acute exacerbation of chronic obstructive pulmonary disease (COPD) Is this a current diagnosis for this admission?: YesPlan: Secondary to upper respiratory infection. Patient is afebrile at the present time. Will start IV steroids, nebulizer treatments, and IV levaquin (4) Anticoagulated Is this a current diagnosis for this admission?: YesPlan: Patient on Eliquis therapy (5) Essential hypertension Is this a current diagnosis for this admission?: YesPlan: Continue current medications - Time Time Spent with patient: 25-34 minutes Critical Time spent with patient: 15-24 minutes Medications reviewed and adjusted accordingly: Yes Anticipated discharge: Home
--- NOTE | 2016-11-13 12:40 | PDOC PROGRESS REPORT ---
Subjective Progress Note for:: 11/13/16 Subjective:: Patient seen on morning rounds. She is out of bed on the bedside commode. She became confused overnight. ABG was checked, which was within normal limits. She is clearer at the present time. She continues to have a cough which is mostly nonproductive and dyspnea with exertion. She denies any chest pain or dyspnea at rest. She denies any nausea, vomiting, or abdominal pain. She denies any back pain. She states her body aches have improved. Her atrial fibrillation is improved with betablockers. Physical Exam Vital Signs: Temp Pulse Resp BP Pulse Ox 97.3 F 92 26 H 146/99 H 95 11/13/16 08:00 11/13/16 08:56 11/13/16 12:07 11/13/16 08:00 11/13/16 12:20 Pulse Oximeter Continuous Start: 11/13/16 12: 12 Freq: RTQ4 Status: Active Document 11/13/16 12:20 LBR (Rec: 11/13/16 12:20 LBR [email or web address]) Pulse Oximetry Assessment Oxygen Saturation (92-100) 95 Oxygen Delivery Method CPAP Fraction of Inspired Oxygen (FIO2) 40 Equipment Usage Initial Set Up Continuous Pulse Oximeter 24 Hour Charge Charge Now Continuous SpO2 Machine # 11 Intake & Output 11/12/16 11/13/16 11/14/16 06:59 06:59 06:59 Intake Total 659 2054 Output Total 200 50 Balance 459 2003 Weight 52.1 kg 54.3 kg General appearance: PRESENT: no acute distress, thin, well-developed, well- nourished Head exam: PRESENT: atraumatic Eye exam: PRESENT: conjunctiva pink, EOMI, PERRLA. ABSENT: scleral icterus Ear exam: PRESENT: normal external ear exam Mouth exam: PRESENT: moist, tongue midline Neck exam: ABSENT: carotid bruit, JVD, lymphadenopathy, thyromegaly Respiratory exam: PRESENT: decreased breath sounds, rhonchi, symmetrical, tachypnea, wheezes Cardiovascular exam: PRESENT: RRR. ABSENT: diastolic murmur, rubs, systolic murmur Pulses: PRESENT: normal dorsalis pedis pul Vascular exam: PRESENT: normal capillary refill GI/Abdominal exam: PRESENT: normal bowel sounds, soft. ABSENT: distended, guarding, mass, organolmegaly, rebound, tenderness Rectal exam: PRESENT: deferred Extremities exam: PRESENT: full ROM. ABSENT: calf tenderness, clubbing, pedal edema Neurological exam: PRESENT: alert, awake, oriented to person, oriented to place , oriented to situation, CN II-XII grossly intact. ABSENT: motor sensory deficit Psychiatric exam: PRESENT: anxious Skin exam: PRESENT: dry, intact, warm. ABSENT: cyanosis, rash Results Laboratory Results: 11/13/16 05:00 11/13/16 05:00 11/12/16 11/12/16 11/12/16 22:45 22:45 22:55 WBC 17.4 H RBC 5.10 Hgb 13.9 Hct 43.0 MCV 84 MCH 27.2 MCHC 32.3 RDW 17.0 H Plt Count 225 Seg Neutrophils % Not Reportable Lymphocytes % Not Reportable Monocytes % Not Reportable Eosinophils % Not Reportable Basophils % Not Reportable Absolute Neutrophils Not Reportable Absolute Lymphocytes Not Reportable Absolute Monocytes Not Reportable Absolute Eosinophils Not Reportable Absolute Basophils Not Reportable Carbonic Acid 1.31 HCO3/H2CO3 Ratio 17:1 ABG pH 7.35 ABG pCO2 43.4 ABG pO2 79.5 L ABG HCO3 23.4 ABG O2 Saturation 95.2 ABG Base Excess -2.3 FiO2 FLOW RATE 5 Sodium 128.9 L Potassium 3.4 L Chloride 85 L Carbon Dioxide 21 L Anion Gap 23 H BUN 41 H Creatinine 1.32 H Est GFR ( Amer) 47 L Est GFR (Non-Af Amer) 39 L Glucose 130 H Calcium 10.1 Magnesium Urine Color Urine Appearance Urine pH Ur Specific [place] Urine Protein Urine Glucose (UA) Urine Ketones Urine Blood Urine Nitrite Ur Leukocyte Esterase Urine WBC (Auto) Urine RBC (Auto) 11/12/16 11/13/16 11/13/16 23:15 05:00 05:00 WBC 14.4 H RBC 4.42 Hgb 12.0 Hct 37.7 MCV 85 MCH 27.1 MCHC 31.8 L RDW 17.1 H Plt Count 204 Seg Neutrophils % Not Reportable Lymphocytes % Not Reportable Monocytes % Not Reportable Eosinophils % Not Reportable Basophils % Not Reportable Absolute Neutrophils Not Reportable Absolute Lymphocytes Not Reportable Absolute Monocytes Not Reportable Absolute Eosinophils Not Reportable Absolute Basophils Not Reportable Carbonic Acid HCO3/H2CO3 Ratio ABG pH ABG pCO2 ABG pO2 ABG HCO3 ABG O2 Saturation ABG Base Excess FiO2 Sodium 128.2 L Potassium 3.9 Chloride 89 L Carbon Dioxide 26 Anion Gap 13 BUN 42 H Creatinine 1.24 Est GFR ( Amer) 50 L Est GFR (Non-Af Amer) 42 L Glucose 184 H Calcium 8.8 Magnesium 3.2 H Urine Color YELLOW Urine Appearance SLIGHTLY-CLOUDY Urine pH 5.0 Ur Specific [place] 1.013 Urine Protein 30 H Urine Glucose (UA) NEGATIVE Urine Ketones NEGATIVE Urine Blood SMALL H Urine Nitrite NEGATIVE Ur Leukocyte Esterase NEGATIVE Urine WBC (Auto) 2 Urine RBC (Auto) 1 11/12/16 08:10 Sputum Gram Stain - Final 11/12/16 08:10 Sputum Sputum Culture - Final 11/10/16 11/10/16 11/10/16 16:38 16:38 22:49 Creatine Kinase 133 149 H Troponin I 0.055 NT-Pro-B Natriuret Pep 11/11/16 11/11/16 11/12/16 05:09 08:03 05:21 Creatine Kinase 151 H Troponin I 0.035 NT-Pro-B Natriuret Pep 5140 H Impressions: Chest X-Ray 11/10/16 11:17 IMPRESSION: Fluid overload or congestive failure superimposed on obstructive lung disease Assessment & Plan - Diagnosis (1) Atrial fibrillation with RVR Is this a current diagnosis for this admission?: YesPlan: She is on Eliquis therapy and metoprolol. She has a history of atrial fibrillation. Her heart rate is much improved since starting her higher dose metoprolol. She did not take metoprolol for 11/2 days prior to her admission. (2) Acute on chronic diastolic (congestive) heart failure Is this a current diagnosis for this admission?: YesPlan: Chest xray shows fluid volume overload. Last echo 10/2015 shows preserved EF with diastolic heart failure grade I/IV and moderate tricuspid regurgitation and mild to moderate mitral regurgitation. Will continue metoprolol and digoxin. Will hold Lasix today, appears dry (3) Acute exacerbation of chronic obstructive pulmonary disease (COPD) Is this a current diagnosis for this admission?: YesPlan: Secondary to upper respiratory infection. Patient is afebrile at the present time. Will start IV steroids, nebulizer treatments, and IV levaquin (4) Anticoagulated Is this a current diagnosis for this admission?: YesPlan: Patient on Eliquis therapy (5) Essential hypertension Is this a current diagnosis for this admission?: YesPlan: Continue current medications (6) Confusion Is this a current diagnosis for this admission?: YesPlan: Most likely secondary to steroids and sleep deprivation. Will cut back steroids and taper off - Time Time Spent with patient: 25-34 minutes Critical Time spent with patient: 15-24 minutes Medications reviewed and adjusted accordingly: Yes
[2016-11-13] MEDS: METOPROLOL TARTRATE 50 MG TABLET PO SCH (17:41)
[2016-11-13] MEDS: HALOPERIDOL LACTATE INJ 5 MG/1 ML VIAL IV PRN (18:44)
[2016-11-13 22:01] LABS: ARTERIAL BLOOD BASE EXCESS -6.9 mmol/L; ARTERIAL BLOOD O2 SATURATION 93.6 % (94-98)
[2016-11-13] MEDS: HYDROXYZINE PAMOATE 25 MG CAPSULE PO SCH (22:51)
[2016-11-13] MEDS: MONTELUKAST SODIUM 10 MG TABLET PO SCH (22:51)
[2016-11-13 23:45] LABS: ALANINE AMINOTRANSFERASE 61 U/L (9-52); ALBUMIN 4.2 g/dL (3.5-5.0); ALKALINE PHOSPHATASE 143 U/L (38-126); ANION GAP 16 (5-19); ASPARTATE AMINO TRANSFERASE 93 U/L (14-36); BILIRUBIN,DIRECT 0.7 mg/dL (0.0-0.3); BLOOD UREA NITROGEN 47 mg/dL (7-20); CALCIUM 9.6 mg/dL (8.4-10.2); CARBON DIOXIDE 22 mmol/L (22-30); CHLORIDE 92 mmol/L (98-107); CREATINE KINASE 134 U/L (30-135); CREATININE RESULT 1.28 mg/dL (0.52-1.25); GLUCOSE 123 mg/dL (75-110); POTASSIUM 4.7 mmol/L (3.6-5.0); SODIUM 130.1 mmol/L (137-145); TOTAL PROTEIN 6.5 g/dL (6.3-8.2)
[2016-11-13 23:57] LABS: CREATINE KINASE MB 7.46 ng/mL (<4.55); TROPONIN I 0.018 ng/mL
[2016-11-14] MEDS: DILTIAZEM HCL 30 MG TABLET PO SCH ×3 (06:21→17:31)
[2016-11-14] MEDS: BENZONATATE 100 MG CAPSULE PO SCH ×3 (06:23→17:33)
[2016-11-14 06:45] LABS: HEMATOCRIT 43.1 % (36.0-47.0); HEMOGLOBIN 13.7 g/dL (12.0-15.5); MEAN CORPUSCULAR HEMOGLOBIN 26.8 pg (27.0-33.4); MEAN CORPUSCULAR HGB CONC 31.9 g/dL (32.0-36.0); MEAN CORPUSCULAR VOLUME 84 fl (80-97); RED BLOOD COUNT 5.13 10^6/uL (3.72-5.28); RED CELL DISTRIBUTION WIDTH 17.1 % (11.5-14.0); WHITE BLOOD COUNT 19.1 10^3/uL (4.0-10.5)
[2016-11-14 06:58] LABS: ANION GAP 16 (5-19); BLOOD UREA NITROGEN 51 mg/dL (7-20); CALCIUM 9.6 mg/dL (8.4-10.2); CARBON DIOXIDE 24 mmol/L (22-30); CHLORIDE 90 mmol/L (98-107); CREATINE KINASE 124 U/L (30-135); CREATININE RESULT 1.26 mg/dL (0.52-1.25); GLUCOSE 128 mg/dL (75-110); MAGNESIUM 2.7 mg/dL (1.6-2.3); POTASSIUM 4.3 mmol/L (3.6-5.0); SODIUM 130.4 mmol/L (137-145)
[2016-11-14 07:10] LABS: CREATINE KINASE MB 7.07 ng/mL (<4.55)
[2016-11-14 07:15] LABS: TROPONIN I < 0.012 ng/mL
[2016-11-14 07:23] LABS: BAND NEUTROPHILS % (MANUAL) 2 % (3-5); BASOPHILS % (MANUAL) 0 % (0-2); EOSINOPHILS % (MANUAL) 0 % (0-6); LYMPHOCYTES % (MANUAL) 0 % (13-45); TOTAL CELLS COUNTED 100
[2016-11-14 07:25] LABS: ANISOCYTOSIS 1+; HYPOCHROMASIA SLIGHT; OVALOCYTES SLIGHT; POIKILOCYTOSIS SLIGHT
[2016-11-14] MEDS ORDERED: NORMAL SALINE 1000 ML 1,000 ML IV PRN ×2 (07:34→09:51)
[2016-11-14] MEDS ORDERED: VANCOMYCIN HCL 0 MG in DEXTROSE 5%-WATER 250 ML IV NR (07:45)
[2016-11-14] MEDS: LEVALBUTEROL HCL NEB 1.25 MG/3 ML AMPUL NEB SCH ×3 (08:44→20:44)
[2016-11-14] MEDS: DOCUSATE SODIUM 100 MG CAPSULE PO SCH (09:35)
[2016-11-14] MEDS: GUAIFENESIN 600 MG TABLET.SA PO SCH ×2 (09:35→22:29)
[2016-11-14] MEDS: FAMOTIDINE 20 MG TABLET PO SCH ×2 (09:35→22:29)
[2016-11-14] MEDS: BUDESONIDE/FORMOTEROL 80-4.5 MCG 60 PUFF/6.9 GM MDI IH SCH ×2 (09:36→17:35)
[2016-11-14] MEDS: APIXABAN 5 MG TABLET PO SCH (09:36)
[2016-11-14] MEDS: LEVOFLOXACIN 500 MG/D5W RTU 100 ML IV SCH (09:36)
[2016-11-14] MEDS: FLUTICASONE NASAL SPRAY 50 MCG/SPRY 120 SPRAY/16 GM NASL SCH (09:37)
[2016-11-14] MEDS: METOPROLOL TARTRATE 100 MG TABLET PO SCH ×2 (09:38→17:32)
[2016-11-14] MEDS ORDERED: PREDNISONE 10 MG TABLET PO SCH (10:00)
[2016-11-14] MEDS ORDERED: PREDNISONE 20 MG TABLET PO SCH ×2 (10:00)
[2016-11-14] MEDS ORDERED: FUROSEMIDE INJ/PF 20 MG/2 ML SDV IV ONE (10:21)
[2016-11-14] MEDS: HALOPERIDOL LACTATE INJ 5 MG/1 ML VIAL IV PRN (10:51)
[2016-11-14] MEDS ORDERED: FUROSEMIDE INJ/PF 40 MG/4 ML SDV IV ONE (11:00)
[2016-11-14] MEDS ORDERED: METOLAZONE 5 MG TABLET PO ONE (11:15)
[2016-11-14 11:24] LABS: ARTERIAL BLOOD BASE EXCESS -1.2 mmol/L; ARTERIAL BLOOD O2 SATURATION 97.7 % (94-98)
[2016-11-14] MEDS: NITROGLYCERIN 2% OINTMENT 1 GM PACKET TP SCH ×2 (11:49→17:33)
[2016-11-14] MEDS: VANCOMYCIN HCL 500 MG in DEXTROSE 5%-WATER 100 ML IV SCH (11:50)
[2016-11-14] MEDS ORDERED: LORAZEPAM INJ 2 MG/1 ML VIAL IV ONE (12:00)
[2016-11-14] MEDS ORDERED: NITROGLYCERIN 2% OINTMENT 1 GM PACKET TP SCH (12:00)
[2016-11-14] MEDS ORDERED: APIXABAN 5 MG TABLET PO SCH (12:27)
[2016-11-14 15:52] LABS: APPEARANCE,URINE CLEAR; BILIRUBIN,URINE NEGATIVE (NEGATIVE); GLUCOSE, URINE NEGATIVE (NEGATIVE); KETONES,URINE NEGATIVE (NEGATIVE); LEUKOCYTE ESTERASE,URINE NEGATIVE (NEGATIVE); NITRITE,URINE NEGATIVE (NEGATIVE); PROTEIN,URINE NEGATIVE (NEGATIVE); UROBILINOGEN,URINE NEGATIVE mg/dL (<2.0)
--- NOTE | 2016-11-14 16:34 | PDOC PROGRESS REPORT ---
Subjective Progress Note for:: 11/14/16 Subjective:: Patient seen on morning rounds. She is in bed on bipap. She remains very confused ABG was checked, which showed hypercapnea. She was not wear. She continues to have a cough which is mostly nonproductive and dyspnea with exertion. She denies any nausea, vomiting, or abdominal pain. She denies any back pain. Her atrial fibrillation is improved with beta blockers. Physical Exam Vital Signs: Temp Pulse Resp BP Pulse Ox 96.4 F L 102 H 22 H 114/92 H 94 11/14/16 12:00 11/14/16 14:26 11/14/16 14:26 11/14/16 12:00 11/14/16 14:26 Pulse Oximeter Continuous Start: 11/13/16 12: 12 Freq: RTQ4 Status: Active Document 11/14/16 11:52 LBR (Rec: 11/14/16 11:52 LBR [email or web address]) Pulse Oximetry Assessment Oxygen Saturation (92-100) 95 Oxygen Delivery Method Nasal Cannula Fraction of Inspired Oxygen (FIO2) 30 Equipment Usage Equipment Standby Continuous SpO2 Machine # 11 Pulse Oximeter Continuous Start: 11/13/16 12: 23 Freq: RTQ4 Status: Active Document 11/13/16 15:35 LBR (Rec: 11/13/16 15:36 LBR [email or web address]) Intake & Output 11/13/16 11/14/16 11/15/16 06:59 06:59 06:59 Intake Total 2054 115 0 Output Total 50 400 Balance 2003 -285 0 Weight 54.3 kg 55 kg General appearance: PRESENT: no acute distress, well-developed, well-nourished Head exam: PRESENT: atraumatic, normocephalic Eye exam: PRESENT: conjunctiva pink, EOMI, PERRLA. ABSENT: scleral icterus Ear exam: PRESENT: normal external ear exam Mouth exam: PRESENT: moist, tongue midline Neck exam: ABSENT: carotid bruit, JVD, lymphadenopathy, thyromegaly Respiratory exam: PRESENT: crackles, decreased breath sounds, symmetrical, tachypnea - bilateral bases. ABSENT: rales, rhonchi, wheezes Cardiovascular exam: PRESENT: RRR. ABSENT: diastolic murmur, rubs, systolic murmur Pulses: PRESENT: normal dorsalis pedis pul Vascular exam: PRESENT: normal capillary refill GI/Abdominal exam: PRESENT: normal bowel sounds, soft. ABSENT: distended, guarding, mass, organolmegaly, rebound, tenderness Rectal exam: PRESENT: deferred Extremities exam: PRESENT: full ROM. ABSENT: calf tenderness, clubbing, pedal edema Neurological exam: PRESENT: alert, awake, oriented to person, oriented to place , oriented to time, oriented to situation, CN II-XII grossly intact. ABSENT: motor sensory deficit Psychiatric exam: PRESENT: appropriate affect, normal mood. ABSENT: homicidal ideation, suicidal ideation Skin exam: PRESENT: dry, intact, warm. ABSENT: cyanosis, rash Results Laboratory Results: 11/14/16 05:25 11/14/16 05:25 11/13/16 11/13/16 11/13/16 21:30 22:25 23:20 WBC RBC Hgb Hct MCV MCH MCHC RDW Plt Count Seg Neutrophils % Lymphocytes % Monocytes % Eosinophils % Basophils % Absolute Neutrophils Absolute Lymphocytes Absolute Monocytes Absolute Eosinophils Absolute Basophils Carbonic Acid 1.82 H HCO3/H2CO3 Ratio 12:1 ABG pH 7.18 L* ABG pCO2 60.6 H ABG pO2 84.7 ABG HCO3 22.2 ABG O2 Saturation 93.6 L ABG Base Excess -6.9 FiO2 50% Sodium Cancelled 130.1 L Potassium Cancelled 4.7 Chloride Cancelled 92 L Carbon Dioxide Cancelled 22 Anion Gap Cancelled 16 BUN Cancelled 47 H Creatinine Cancelled 1.28 H Est GFR ( Amer) Cancelled 48 L Est GFR (Non-Af Amer) Cancelled 40 L Glucose Cancelled 123 H Calcium Cancelled 9.6 Magnesium Total Bilirubin Cancelled 3.0 H AST Cancelled 93 H ALT Cancelled 61 H Alkaline Phosphatase Cancelled 143 H Total Protein Cancelled 6.5 Albumin Cancelled 4.2 Urine Color Urine Appearance Urine pH Ur Specific [place] Urine Protein Urine Glucose (UA) Urine Ketones Urine Blood Urine Nitrite Ur Leukocyte Esterase Urine RBC (Auto) 11/14/16 11/14/16 11/14/16 05:25 05:25 11:11 WBC 19.1 H RBC 5.13 Hgb 13.7 Hct 43.1 MCV 84 MCH 26.8 L MCHC 31.9 L RDW 17.1 H Plt Count 246 Seg Neutrophils % Not Reportable Lymphocytes % Not Reportable Monocytes % Not Reportable Eosinophils % Not Reportable Basophils % Not Reportable Absolute Neutrophils Not Reportable Absolute Lymphocytes Not Reportable Absolute Monocytes Not Reportable Absolute Eosinophils Not Reportable Absolute Basophils Not Reportable Carbonic Acid 1.17 HCO3/H2CO3 Ratio 20:1 ABG pH 7.40 ABG pCO2 39.0 ABG pO2 102.1 H ABG HCO3 23.4 ABG O2 Saturation 97.7 ABG Base Excess -1.2 FiO2 35% Sodium 130.4 L Potassium 4.3 Chloride 90 L Carbon Dioxide 24 Anion Gap 16 BUN 51 H Creatinine 1.26 H Est GFR ( Amer) 49 L Est GFR (Non-Af Amer) 41 L Glucose 128 H Calcium 9.6 Magnesium 2.7 H Total Bilirubin AST ALT Alkaline Phosphatase Total Protein Albumin Urine Color Urine Appearance Urine pH Ur Specific [place] Urine Protein Urine Glucose (UA) Urine Ketones Urine Blood Urine Nitrite Ur Leukocyte Esterase Urine RBC (Auto) 11/14/16 12:30 WBC RBC Hgb Hct MCV MCH MCHC RDW Plt Count Seg Neutrophils % Lymphocytes % Monocytes % Eosinophils % Basophils % Absolute Neutrophils Absolute Lymphocytes Absolute Monocytes Absolute Eosinophils Absolute Basophils Carbonic Acid HCO3/H2CO3 Ratio ABG pH ABG pCO2 ABG pO2 ABG HCO3 ABG O2 Saturation ABG Base Excess FiO2 Sodium Potassium Chloride Carbon Dioxide Anion Gap BUN Creatinine Est GFR ( Amer) Est GFR (Non-Af Amer) Glucose Calcium Magnesium Total Bilirubin AST ALT Alkaline Phosphatase Total Protein Albumin Urine Color YELLOW Urine Appearance CLEAR Urine pH 5.0 Ur Specific [place] 1.010 Urine Protein NEGATIVE Urine Glucose (UA) NEGATIVE Urine Ketones NEGATIVE Urine Blood NEGATIVE Urine Nitrite NEGATIVE Ur Leukocyte Esterase NEGATIVE Urine RBC (Auto) 0 11/10/16 11/10/16 11/10/16 16:38 16:38 22:49 Creatine Kinase 133 149 H CK-MB (CK-2) Troponin I 0.055 NT-Pro-B Natriuret Pep 11/11/16 11/11/16 11/12/16 05:09 08:03 05:21 Creatine Kinase 151 H CK-MB (CK-2) Troponin I 0.035 NT-Pro-B Natriuret Pep 5140 H 11/13/16 11/13/16 11/13/16 22:25 22:25 23:20 Creatine Kinase Cancelled CK-MB (CK-2) Cancelled 7.46 H Troponin I Cancelled 0.018 NT-Pro-B Natriuret Pep 11/13/16 11/14/16 11/14/16 23:20 05:25 05:25 Creatine Kinase 134 124 CK-MB (CK-2) 7.07 H Troponin I < 0.012 NT-Pro-B Natriuret Pep Impressions: Chest X-Ray 11/14/16 00:00 IMPRESSION: Pulmonary vascular prominence with trace pleural effusions. Assessment & Plan - Diagnosis (1) Atrial fibrillation with RVR Is this a current diagnosis for this admission?: YesPlan: She is on Eliquis therapy,metoprolol and diltiazem. She has a history of atrial fibrillation. Her heart rate is much improved since starting her higher dose metoprolol. She did not take metoprolol for 11/2 days prior to her admission. (2) Acute on chronic diastolic (congestive) heart failure Is this a current diagnosis for this admission?: YesPlan: Chest xray shows fluid volume overload. Last echo 10/2015 shows preserved EF with diastolic heart failure grade I/IV and moderate tricuspid regurgitation, mild to moderate mitral regurgitation and moderate pulmonary hypertension. Will continue metoprolol and digoxin. Chest xray today shows bilateral small pleural effusions that were not present on admission and moderate pulmonary vascular congestion as well as COPD. Will diurese with Lasix and metalazone, insert bell. Continue BIPAP (3) Acute exacerbation of chronic obstructive pulmonary disease (COPD) Is this a current diagnosis for this admission?: YesPlan: Secondary to upper respiratory infection. Patient is afebrile at the present time. She has increasing leucocytosis. Will add vancomycin and reculture. She has worsening chest xray secondary to moderate fluid volume overload and her confusion. She is requiring BIPAP. Repeat ABG this morning shows resolution of hypercapnea and improvement in her oxygenation. (4) Anticoagulated Is this a current diagnosis for this admission?: YesPlan: Patient on Eliquis therapy (5) Essential hypertension Is this a current diagnosis for this admission?: YesPlan: Continue current medications (6) Confusion Is this a current diagnosis for this admission?: YesPlan: Most likely secondary to steroids and sleep deprivation. Will change IV steroids to oral prednisone and taper (7) Goals of care, counseling/discussion Is this a current diagnosis for this admission?: YesPlan: Discussed her current status , disease comorbidities with son and daughter- addie. Son is her MPOA. He states his mother has instructed him that she wishes to be a DNR and has an out of hospital DNR and living will that he will bring in for her chart. - Time Time Spent with patient: 25-34 minutes Medications reviewed and adjusted accordingly: Yes Anticipated discharge: Home with Homehealth - Inpatient Certification Based on my medical assessment, after consideration of the patient's comorbidities, presenting symptoms, or acuity I expect that the services needed warrant INPATIENT care.: Yes I certify that my determination is in accordance with my understanding of Medicare's requirements for reasonable and necessary INPATIENT services [42 CFR 412.3e].: Yes Medical Necessity: Significant Comorbidiites Make Outpatient Treatment Too Risky , Need Close Monitoring Due to Risk of Patient Decompensation, Need for IV Antibiotics, Risk of Complication if Not Cared For in Hospital
[2016-11-14] MEDS: PREDNISONE 10 MG TABLET PO SCH (17:31)
[2016-11-14] MEDS: LORAZEPAM INJ 2 MG/1 ML VIAL IV PRN (17:36)
[2016-11-14] MEDS ORDERED: RISPERIDONE 1 MG TABLET PO SCH (22:00)
[2016-11-14] MEDS: APIXABAN 2.5 MG TABLET PO SCH (22:28)
[2016-11-14] MEDS: MONTELUKAST SODIUM 10 MG TABLET PO SCH (22:28)
[2016-11-14] MEDS: HYDROXYZINE PAMOATE 50 MG CAPSULE PO SCH (22:29)
[2016-11-15] MEDS: NITROGLYCERIN 2% OINTMENT 1 GM PACKET TP SCH ×4 (00:21→19:47)
[2016-11-15] MEDS: BENZONATATE 100 MG CAPSULE PO SCH ×5 (00:21→23:39)
[2016-11-15] MEDS: DILTIAZEM HCL 30 MG TABLET PO SCH ×5 (00:21→23:39)
[2016-11-15] MEDS: METOPROLOL TARTRATE PF/INJ 5 MG/5 ML SDV IV PRN ×5 (00:21→23:08)
[2016-11-15 06:05] LABS: HEMATOCRIT 46.6 % (36.0-47.0); HGB HCT DIFFERENCE -1.6; MEAN CORPUSCULAR HEMOGLOBIN 27.1 pg (27.0-33.4); MEAN CORPUSCULAR HGB CONC 32.2 g/dL (32.0-36.0); MEAN CORPUSCULAR VOLUME 84 fl (80-97); RED BLOOD COUNT 5.54 10^6/uL (3.72-5.28); RED CELL DISTRIBUTION WIDTH 17.2 % (11.5-14.0); WHITE BLOOD COUNT 19.8 10^3/uL (4.0-10.5)
[2016-11-15 06:22] LABS: ALANINE AMINOTRANSFERASE 89 U/L (9-52); ALBUMIN 2.8 g/dL (3.5-5.0); ALKALINE PHOSPHATASE 119 U/L (38-126); ANION GAP 14 (5-19); ASPARTATE AMINO TRANSFERASE 95 U/L (14-36); BILIRUBIN,DIRECT 0.2 mg/dL (0.0-0.3); BILIRUBIN,TOTAL 2.3 mg/dL (0.2-1.3); BLOOD UREA NITROGEN 60 mg/dL (7-20); CALCIUM 9.3 mg/dL (8.4-10.2); CARBON DIOXIDE 28 mmol/L (22-30); CHLORIDE 90 mmol/L (98-107); CREATININE RESULT 1.32 mg/dL (0.52-1.25); GLUCOSE 133 mg/dL (75-110); POTASSIUM 3.5 mmol/L (3.6-5.0); SODIUM 131.7 mmol/L (137-145); TOTAL PROTEIN 5.1 g/dL (6.3-8.2)
[2016-11-15 06:24] LABS: BASOPHILS % (MANUAL) 0 % (0-2); EOSINOPHILS % (MANUAL) 0 % (0-6); LYMPHOCYTES % (MANUAL) 2 % (13-45); TOTAL CELLS COUNTED 100
[2016-11-15 06:26] LABS: ANISOCYTOSIS SLIGHT; TOXIC GRANULATION SLIGHT; TOXIC VACUOLATION PRESENT
[2016-11-15] MEDS ORDERED: NORMAL SALINE 1000 ML 1,000 ML IV PRN (06:50)
[2016-11-15] MEDS ORDERED: POTASSI CL 20 MEQ/50 ML RIDER 20 MEQ/50 ML RTUPB IV ONE (06:52)
[2016-11-15] MEDS: LEVALBUTEROL HCL NEB 1.25 MG/3 ML AMPUL NEB SCH ×3 (08:33→20:12)
[2016-11-15] MEDS ORDERED: LORAZEPAM INJ 2 MG/1 ML VIAL IV ONE (10:17)
[2016-11-15] MEDS: FAMOTIDINE 20 MG TABLET PO SCH ×2 (11:57→21:35)
[2016-11-15] MEDS: BUDESONIDE/FORMOTEROL 80-4.5 MCG 60 PUFF/6.9 GM MDI IH SCH ×2 (11:57→17:39)
[2016-11-15] MEDS: PREDNISONE 10 MG TABLET PO SCH ×2 (11:57→17:39)
[2016-11-15] MEDS: GUAIFENESIN 600 MG TABLET.SA PO SCH ×2 (11:57→21:35)
[2016-11-15] MEDS: FLUTICASONE NASAL SPRAY 50 MCG/SPRY 120 SPRAY/16 GM NASL SCH (11:57)
[2016-11-15] MEDS: METOPROLOL TARTRATE 100 MG TABLET PO SCH ×2 (11:57→17:39)
[2016-11-15] MEDS: DOCUSATE SODIUM 100 MG CAPSULE PO SCH (11:57)
[2016-11-15] MEDS: APIXABAN 2.5 MG TABLET PO SCH ×2 (11:57→21:35)
[2016-11-15] MEDS: LEVOFLOXACIN 500 MG/D5W RTU 100 ML IV SCH (11:58)
[2016-11-15] MEDS: VANCOMYCIN HCL 500 MG in DEXTROSE 5%-WATER 100 ML IV SCH (15:07)
--- NOTE | 2016-11-15 15:53 | PDOC PROGRESS REPORT ---
Subjective Progress Note for:: 11/15/16 Subjective:: Patient seen on morning rounds. She is in bed on bipap. She remains very confused at times on BIPAP. Her son and daughter-addie are at the bedside. Patient has been unable to take any pills or oral intake overnight. Son is asking about changing to Comfort measures only. Physical Exam Vital Signs: Temp Pulse Resp BP Pulse Ox 97.2 F 87 23 H 117/85 95 11/14/16 19:46 11/15/16 13:55 11/15/16 13:55 11/15/16 07:44 11/15/16 08:32 Pulse Oximeter Continuous Start: 11/13/16 12: 12 Freq: RTQ4 Status: Active Document 11/15/16 12:00 CWH (Rec: 11/15/16 14:12 CWH [email or web address]) Pulse Oximetry Assessment Equipment Usage Equipment Standby Continuous SpO2 Machine # 11 Pulse Oximeter Continuous Start: 11/13/16 12: 23 Freq: RTQ4 Status: Active Document 11/13/16 15:35 LBR (Rec: 11/13/16 15:36 LBR [email or web address]) Intake & Output 11/14/16 11/15/16 11/16/16 06:59 06:59 06:59 Intake Total 115 210 Output Total 400 2300 Balance -285 -2090 Weight 55 kg 55.1 kg General appearance: PRESENT: no acute distress, well-developed, well-nourished Head exam: PRESENT: atraumatic, normocephalic Eye exam: PRESENT: conjunctiva pink, EOMI, PERRLA. ABSENT: scleral icterus Ear exam: PRESENT: normal external ear exam Mouth exam: PRESENT: moist, tongue midline Neck exam: ABSENT: carotid bruit, JVD, lymphadenopathy, thyromegaly Respiratory exam: PRESENT: crackles, symmetrical, tachypnea. ABSENT: rales, rhonchi, wheezes Cardiovascular exam: PRESENT: RRR. ABSENT: diastolic murmur, rubs, systolic murmur Pulses: PRESENT: normal dorsalis pedis pul Vascular exam: PRESENT: normal capillary refill GI/Abdominal exam: PRESENT: normal bowel sounds, soft. ABSENT: distended, guarding, mass, organolmegaly, rebound, tenderness Rectal exam: PRESENT: deferred Extremities exam: PRESENT: full ROM. ABSENT: calf tenderness, clubbing, pedal edema Neurological exam: PRESENT: altered, CN II-XII grossly intact, other. ABSENT: motor sensory deficit Psychiatric exam: PRESENT: appropriate affect, normal mood. ABSENT: homicidal ideation, suicidal ideation Skin exam: PRESENT: dry, intact, warm. ABSENT: cyanosis, rash Results Laboratory Results: 11/15/16 05:17 11/15/16 05:17 11/14/16 11/15/16 11/15/16 12:30 05:17 05:17 WBC 19.8 H RBC 5.54 H Hgb 15.0 Hct 46.6 MCV 84 MCH 27.1 MCHC 32.2 RDW 17.2 H Plt Count 243 Seg Neutrophils % Not Reportable Lymphocytes % Not Reportable Monocytes % Not Reportable Eosinophils % Not Reportable Basophils % Not Reportable Absolute Neutrophils Not Reportable Absolute Lymphocytes Not Reportable Absolute Monocytes Not Reportable Absolute Eosinophils Not Reportable Absolute Basophils Not Reportable Sodium 131.7 L Potassium 3.5 L Chloride 90 L Carbon Dioxide 28 Anion Gap 14 BUN 60 H Creatinine 1.32 H Est GFR ( Amer) 47 L Est GFR (Non-Af Amer) 39 L Glucose 133 H Calcium 9.3 Total Bilirubin 2.3 H AST 95 H ALT 89 H Alkaline Phosphatase 119 Total Protein 5.1 L Albumin 2.8 L Urine Color YELLOW Urine Appearance CLEAR Urine pH 5.0 Ur Specific [place] 1.010 Urine Protein NEGATIVE Urine Glucose (UA) NEGATIVE Urine Ketones NEGATIVE Urine Blood NEGATIVE Urine Nitrite NEGATIVE Ur Leukocyte Esterase NEGATIVE Urine RBC (Auto) 0 11/12/16 23:15 Clean Catch Midstream Urine Culture - Final NO GROWTH 2 DAYS 11/10/16 11/10/16 11/10/16 16:38 16:38 22:49 Creatine Kinase 133 149 H CK-MB (CK-2) Troponin I 0.055 NT-Pro-B Natriuret Pep 11/11/16 11/11/16 11/12/16 05:09 08:03 05:21 Creatine Kinase 151 H CK-MB (CK-2) Troponin I 0.035 NT-Pro-B Natriuret Pep 5140 H 11/13/16 11/13/16 11/13/16 22:25 22:25 23:20 Creatine Kinase Cancelled CK-MB (CK-2) Cancelled 7.46 H Troponin I Cancelled 0.018 NT-Pro-B Natriuret Pep 11/13/16 11/14/16 11/14/16 23:20 05:25 05:25 Creatine Kinase 134 124 CK-MB (CK-2) 7.07 H Troponin I < 0.012 NT-Pro-B Natriuret Pep Impressions: Chest X-Ray 11/14/16 00:00 IMPRESSION: Pulmonary vascular prominence with trace pleural effusions. Assessment & Plan - Diagnosis (1) Atrial fibrillation with RVR Is this a current diagnosis for this admission?: YesPlan: She is on Eliquis therapy,metoprolol and diltiazem. She has a history of atrial fibrillation. Her heart rate is much improved since starting her higher dose metoprolol. She did not take metoprolol for 11/2 days prior to her admission. (2) Acute on chronic diastolic (congestive) heart failure Is this a current diagnosis for this admission?: YesPlan: Chest xray shows fluid volume overload. Last echo 10/2015 shows preserved EF with diastolic heart failure grade I/IV and moderate tricuspid regurgitation, mild to moderate mitral regurgitation and moderate pulmonary hypertension. Will continue metoprolol and digoxin. Chest xray today shows bilateral small pleural effusions that were not present on admission and moderate pulmonary vascular congestion as well as COPD. Will diurese with Lasix and metalazone, insert bell. Continue BIPAP (3) Acute exacerbation of chronic obstructive pulmonary disease (COPD) Is this a current diagnosis for this admission?: YesPlan: Secondary to upper respiratory infection. Patient is afebrile at the present time. She has increasing leucocytosis. Will add vancomycin and reculture. She has worsening chest xray secondary to moderate fluid volume overload and her confusion. She is requiring BIPAP. Repeat ABG this morning shows resolution of hypercapnea and improvement in her oxygenation. (4) Anticoagulated Is this a current diagnosis for this admission?: YesPlan: Patient on Eliquis therapy (5) Essential hypertension Is this a current diagnosis for this admission?: YesPlan: Continue current medications (6) Confusion Is this a current diagnosis for this admission?: YesPlan: Most likely secondary to steroids and sleep deprivation. Will change IV steroids to oral prednisone and taper (7) Goals of care, counseling/discussion Is this a current diagnosis for this admission?: YesPlan: Discussed her current status , disease comorbidities with son and daughter- addie. Son is her MPOA. He states his mother has instructed him that she wishes to be a DNR and has an out of hospital DNR and living will that he will bring in for her chart. He and his are now considering comfort measures only. They will discuss with patient's other son in [place] and let us know their decision. (8) PAD (peripheral artery disease) Is this a current diagnosis for this admission?: YesPlan: Patient with darkened left toe. Has been evaluated with arterial flow studies. She was supposed to follow up with invasive cardiology - Time Time Spent with patient: 35 or more minutes Critical Time spent with patient: 25-34 minutes
[2016-11-15] MEDS: LORAZEPAM INJ 2 MG/1 ML VIAL IV PRN (16:39)
[2016-11-15] MEDS: HYDROXYZINE PAMOATE 50 MG CAPSULE PO SCH (21:35)
[2016-11-15] MEDS: MONTELUKAST SODIUM 10 MG TABLET PO SCH (21:35)
[2016-11-15] MEDS ORDERED: METOPROLOL TARTRATE PF/INJ 5 MG/5 ML SDV IV ONE ×2 (23:06→23:15)
[2016-11-16] MEDS: LORAZEPAM INJ 2 MG/1 ML VIAL IV PRN ×2 (00:47→11:53)
[2016-11-16] MEDS: NITROGLYCERIN 2% OINTMENT 1 GM PACKET TP SCH ×4 (00:47→17:35)
[2016-11-16] MEDS ORDERED: DILTIAZEM HCL/D5W 125 MG/125 ML RTUINJ IV PRN (01:27)
[2016-11-16] MEDS: DILTIAZEM HCL 30 MG TABLET PO SCH ×2 (05:56→11:53)
[2016-11-16] MEDS: BENZONATATE 100 MG CAPSULE PO SCH ×2 (05:56→11:53)
[2016-11-16] MEDS: LEVALBUTEROL HCL NEB 1.25 MG/3 ML AMPUL NEB SCH (08:12)
[2016-11-16] MEDS: METOPROLOL TARTRATE 100 MG TABLET PO SCH (08:20)
[2016-11-16] MEDS: DOCUSATE SODIUM 100 MG CAPSULE PO SCH (09:14)
[2016-11-16] MEDS: GUAIFENESIN 600 MG TABLET.SA PO SCH (09:14)
[2016-11-16] MEDS: BUDESONIDE/FORMOTEROL 80-4.5 MCG 60 PUFF/6.9 GM MDI IH SCH (09:14)
[2016-11-16] MEDS: FAMOTIDINE 20 MG TABLET PO SCH (09:14)
[2016-11-16] MEDS: APIXABAN 2.5 MG TABLET PO SCH (09:14)
[2016-11-16] MEDS: FLUTICASONE NASAL SPRAY 50 MCG/SPRY 120 SPRAY/16 GM NASL SCH (09:14)
[2016-11-16] MEDS: PREDNISONE 10 MG TABLET PO SCH (09:14)
[2016-11-16] MEDS: LEVOFLOXACIN 500 MG/D5W RTU 100 ML IV SCH (09:56)
[2016-11-16 12:23] VITALS: BP 115/85
[2016-11-16] MEDS ORDERED: ONDANSETRON HCL INJ/PF 4 MG/2 ML SDV IV PRN (12:42)
[2016-11-16] MEDS ORDERED: LORAZEPAM INJ 2 MG/1 ML VIAL IV PRN (12:42)
[2016-11-16] MEDS ORDERED: NORMAL SALINE 1000 ML 1,000 ML IV PRN (13:06)
[2016-11-16] MEDS ORDERED: MORPHINE SULFATE 60 MG/60 ML RTUINJ IV PRN (13:21)
--- NOTE | 2016-11-16 16:26 | PDOC PROGRESS REPORT ---
Subjective Progress Note for:: 11/16/16 Subjective:: The patient was seen earlier today on rounds. The patient went into RVR overnight was started on a Cardizem drip. The patient is progressively weak and frail. Patient has been quite uncomfortable required Ativan. The family has elected to proceed with comfort care measures at this time. 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 The patient has received her last rights. The family has elected to proceed with comfort care. Physical Exam Vital Signs: Temp Pulse Resp BP Pulse Ox 97.1 F 94 15 115/85 90 L 11/16/16 07:23 11/16/16 08:13 11/16/16 15:38 11/16/16 12:02 11/16/16 08:13 Pulse Oximeter Continuous Start: 11/13/16 12: 12 Freq: RTQ4 Status: Complete Document 11/16/16 12:00 LDA (Rec: 11/16/16 12:33 LDA [email or web address]) Pulse Oximetry Assessment Equipment Usage Equipment Standby Continuous SpO2 Machine # [id number] Pulse Oximeter Continuous Start: 11/13/16 12: 23 Freq: RTQ4 Status: Complete Document 11/13/16 15:35 LBR (Rec: 11/13/16 15:36 LBR [email or web address]) Intake & Output 11/14/16 11/15/16 11/16/16 23:59 23:59 23:59 Intake Total 315 450 65 Output Total 1800 1300 600 Balance -1485 -850 -535 Weight 55 kg 55.1 kg 55 kg General appearance: PRESENT: disheveled, thin Exam: Chronically ill-appearing Head exam: PRESENT: atraumatic, normocephalic Eye exam: PRESENT: conjunctiva pale Ear exam: PRESENT: normal external ear exam Mouth exam: PRESENT: moist, tongue midline Neck exam: ABSENT: carotid bruit, JVD, lymphadenopathy, thyromegaly, tracheal deviation, tracheostomy Respiratory exam: PRESENT: decreased breath sounds, symmetrical, tachypnea, wheezes. ABSENT: rales, rhonchi, unlabored Cardiovascular exam: PRESENT: irregular rhythm. ABSENT: diastolic murmur, rubs , systolic murmur Vascular exam: PRESENT: pallor GI/Abdominal exam: PRESENT: normal bowel sounds, soft. ABSENT: distended, guarding, mass, organolmegaly, rebound, tenderness Rectal exam: PRESENT: deferred Extremities exam: PRESENT: full ROM. ABSENT: calf tenderness, clubbing, pedal edema Neurological exam: PRESENT: altered - Minimally responsive Psychiatric exam: ABSENT: homicidal ideation, suicidal ideation Skin exam: PRESENT: dry, intact, warm. ABSENT: cyanosis, rash Results Laboratory Results: 11/15/16 05:17 11/15/16 05:17 11/10/16 11/10/16 11/10/16 16:38 16:38 22:49 Creatine Kinase 133 149 H CK-MB (CK-2) Troponin I 0.055 NT-Pro-B Natriuret Pep 11/11/16 11/11/16 11/12/16 05:09 08:03 05:21 Creatine Kinase 151 H CK-MB (CK-2) Troponin I 0.035 NT-Pro-B Natriuret Pep 5140 H 11/13/16 11/13/16 11/13/16 22:25 22:25 23:20 Creatine Kinase Cancelled CK-MB (CK-2) Cancelled 7.46 H Troponin I Cancelled 0.018 NT-Pro-B Natriuret Pep 11/13/16 11/14/16 11/14/16 23:20 05:25 05:25 Creatine Kinase 134 124 CK-MB (CK-2) 7.07 H Troponin I < 0.012 NT-Pro-B Natriuret Pep Impressions: Chest X-Ray 11/14/16 00:00 IMPRESSION: Pulmonary vascular prominence with trace pleural effusions. Assessment & Plan - Diagnosis (1) Acute exacerbation of chronic obstructive pulmonary disease (COPD) Is this a current diagnosis for this admission?: YesPlan: Are seen with comfort care (2) Acute on chronic diastolic (congestive) heart failure Is this a current diagnosis for this admission?: Yes (3) Anticoagulated Is this a current diagnosis for this admission?: Yes (4) Atrial fibrillation with RVR Is this a current diagnosis for this admission?: Yes (5) Essential hypertension Is this a current diagnosis for this admission?: Yes (6) PAD (peripheral artery disease) Is this a current diagnosis for this admission?: Yes (7) COPD exacerbation Is this a current diagnosis for this admission?: Yes (8) Atrial fibrillation Qualifiers: Atrial fibrillation type: chronic Qualified Code(s): I48.2 - Chronic atrial fibrillation Is this a current diagnosis for this admission?: Yes (9) History of DVT (deep vein thrombosis) Is this a current diagnosis for this admission?: Yes (10) History of pulmonary embolism Is this a current diagnosis for this admission?: Yes (11) History of rectal bleeding Is this a current diagnosis for this admission?: Yes (12) Lung nodules Is this a current diagnosis for this admission?: Yes (13) Goals of care, counseling/discussion Is this a current diagnosis for this admission?: YesPlan: Proceed with comfort care - Time Time Spent with patient: on this visit including assessment, plan, physical examination, family meeting, and attempted patient education is 35 minutes. Time Spent with patient: 35 or more minutes Medications reviewed and adjusted accordingly: Yes Anticipated discharge: Hospice Disposition: The patient is a DNR/DNI with comfort care measures only. Will reevaluate transition to hospice house in the next 24 hours.
--- NOTE | 2016-11-17 12:17 | Progress Note ---
Provider Note Provider Note: summary Date of admission: 11/10/2016 Date and time of : 11/16/20161856 Hospital course: Mone Sanon is a 80-year-old, female, who presented to [facility] on 11/10/2016, with complaints of worsening dyspnea and shortness of breath. She has a known history of COPD, not on home oxygen. She is a DNR per her request and that of her son. She also has a history of diastolic congestive heart failure, ABHI , chronic atrial fibrillation and pulmonary hypertension. She also has history of essential hypertension,and peripheral arterial disease. She noted generalized weakness, chills, and congestive cough the day prior to admission. In the ER she was noted to be slightly hypoxemic on room air, with oxygen saturation of 87%. VBG done at that time showed no hypercapnia. She was placed on oxygen by nasal cannula and started on nebulizer treatments. Chest x-ray in the emergency room demonstrated increased pulmonary vasculature, no pneumonias or infiltrates. She was referred to the hospitalist for admission. Patient was admitted to the IMCU on telemetry. She continued was continued to have IV diuretics, IV steroids and nebulizer treatments. She had worsening of her shortness of breath on the following day requiring BiPAP placement. She also had increasing confusion and agitation. Patient was easy to maintain on BiPAP, however did desaturate when BiPAP was removed. IV antibiotics were continued as, as well as steroid taper and nebulizer treatments. The patient due to confusion and agitation was unable to come off BiPAP. Her son, who is her medical power of sports attorney decided on the 11/15, that they were more interest in keeping her comfortable in continuing with aggressive treatments. He discussed this with his brother in [place] who agreed. On 11/16/1904/28/2016, the patient's care was converted to comfort care measures only. Patient was taken off BiPAP therapy. She was given morphine DRAFTING TECHNICIAN for her dyspnea. She had no signs of pain or discomfort. The family was at her bedside. At 1857 patient was noted by nursing staff to be asystolic and apneic. She was pronounced by 2 RNs. Hospitalist service was notified.
== END 2016-11-16 20:51 | disposition expired | DRG 308 ==
LOC: ER 09:39 → EH 14:44 → 3S 16:33
PROVIDERS: ADMIT Emergency Medicine; ATTEND Emergency Medicine
PROC: 5A09457 Assistance with Respiratory Ventilation, 24-96 Consecutive Hours, Continuous Positive Airway Pressure (ICD-10-PCS; principal; 2016-11-15)
DX: I48.2 Chronic atrial fibrillation (principal); I50.33 Acute on chronic diastolic (congestive) heart failure; J44.1 Chronic obstructive pulmonary disease with (acute) exacerbation; J06.9 Acute upper respiratory infection, unspecified; Z51.5 Encounter for palliative care; Z66 Do not resuscitate; I10 Essential (primary) hypertension; I73.9 Peripheral vascular disease, unspecified; K21.9 Gastro-esophageal reflux disease without esophagitis; R91.8 Other nonspecific abnormal finding of lung field; Z79.01 Long term (current) use of anticoagulants; Z79.899 Other long term (current) drug therapy; Z87.891 Personal history of nicotine dependence; Z86.718 Personal history of other venous thrombosis and embolism; Z86.711 Personal history of pulmonary embolism; Z88.0 Allergy status to penicillin
CPT/HCPCS: 36415; 36600; 71010; 71020; 80048; 80053; 80061; 80162; 81001; 82550; 82553; 82803; 82962; 83735; 83880; 84439; 84443; 84481; 84484; 85025; 85610; 87040; 87086; 87205; 93005; 93010; 94640; 94660; 94762; 96360; 99285; J1630; J1940; J1956; J2060; J2270; J2405; J2930; J3370; J3475; J3480; J3490; J7030; J7060; J7512; J7620